=== PATIENT | male | born 1960 | race Caucasian/White ===

== ENCOUNTER 2016-07-07 22:29 | Emergency (ER) | payer BC, OTHER ==
[~2016-07-07] VITALS: Ht 172.7 cm; Wt 108.9 kg
[~2016-07-07 22:29] MED LIST: ASP81TEC PO; BENA20TA72 PO; DILT120T11 PO; HYDR1TAB3 PO; NAPR-243 PO; OMEP-10 PO; PRAV40TA PO; TRM50T PO; diltiazem; tricor
[2016-07-07] MEDS ORDERED: QUIN40TA25 (22:50)
[2016-07-07] MEDS ORDERED: ATOR40TA70 (22:50)
[2016-07-07] MEDS ORDERED: METF1000 (22:50)
[2016-07-07] MEDS ORDERED: RX-NAPROXEN (NAPROSYN) 250 MG TAB PPK#4 PO STA (23:45)
[2016-07-07] MEDS ORDERED: NAPR500T3 PO (23:49)
--- NOTE | 2016-07-07 23:49 | ED Lower Extremity ---
General Chief Complaint: Lower Extremity Stated Complaint: R ANKLE KNEE INJ Nursing Triage Note: PT TO ED 8 PER W/C W/ FAMILY FOR C/O FALL WHILE "MESSING AROUND" W/ HIS SONS. STATES HE STEPPED IN A HOLE. C/O RT KNEE ET ANKLE PAIN AT THIS TIME. Nursing Sepsis Screen: No Definite Risk Source: patient History of Present Illness Time seen by provider: 23:00 Initial Comments PT ARRIVES VIA POV FROM HOME STATES EARLIER THIS EVENING HE WAS "MESSING AROUND" WITH ONE OF HIS SONS AND SOMEHOW INJURED HIS RIGHT KNEE, FOOT AND ANKLE STATES HE DOES NOT KNOW EXACTLY HOW HE INJURED IT --STATES "MUST HAVE STEPPED IN A HOLE OR SOMETHING" NO OTHER INJURIES OR AREAS OF PAIN NO PARESTHESIAS OR MOTOR DEFICITS HAS HAD PRIOR RIGHT KNEE SURGERY PCP: SHAISTA MUKHERJEE Allergies and Home Medications Allergies Coded Allergies: No Known Drug Allergies (Unverified , 09/17/10) Home Medications Aspirin 81 Mg Tabec, 81 MG PO DAILY, (Reported) Atorvastatin Calcium 40 Mg Tablet, #90 (Reported) Diltiazem Hcl 120 Mg Tablet, 120 MG PO DAILY, (Reported) Hydrocodone Bit/Acetaminophen 1 Each Tablet, 1 EACH PO Q6H, (Reported) Metformin HCl 1,000 Mg Tablet, #360 (Reported) Naproxen 500 Mg Tablet, 500 MG PO BID, #20 Prescribed by: OTIS VENTURA on 07/07/16 9153 Quinapril HCl 40 Mg Tablet, #90 (Reported) Constitutional: no symptoms reported Musculoskeletal: see HPI Skin: no symptoms reported Psychiatric/Neurological: No Symptoms Reported Past Bisozvm-Gracqm-Dhlnhj Hx Patient Social History Alcohol Use: Regular Use Recreational Drug Use: No Smoking Status: Current Everyday Smoker (1 PPD) Type Used: Cigarettes Recent Foreign Travel: No Contact w/Someone Who Travel: No Recent Infectious Disease Expo: No Recent Hopitalizations: No Surgeries HX Surgeries: Yes (RIGHT KNEE; RIGHT SHOULDER ROTATOR CUFF REPAIR) Surgeries: Orthopedic Respiratory Hx Respiratory Disorders: Yes Respiratory Disorders: COPD Cardiovascular Hx Cardiac Disorders: Yes Cardiac Disorders: Coronary Artery Disease, Heart Attack, High Cholesterol, Irregular Heartbeat Neurological Hx Neurological Disorders: No Reproductive System Hx Reproductive Disorders: No Genitourinary Hx Genitourinary Disorders: No Gastrointestinal Hx Gastrointestinal Disorders: No Musculoskeletal Hx Musculoskeletal Disorders: Yes (KNEE, SHOULDER SURGERIES; CHRONIC GENERALIZED PAIN) Endocrine Hx Endocrine Disorders: Yes Endocrine Disorders: Diabetes, Non-Insulin dep HEENT HX ENT Disorders: No Cancer Hx Cancer: No Psychosocial Hx Psychiatric Problems: No Integumentary HX Skin/Integumentary Disorder: No Blood Transfusions Hx Blood Disorders: No Physical Exam Vital Signs Vital Sign - Last 12Hours 07/07/16 22:35 Temp 98.6 Pulse 91 Resp 20 B/P (MAP) 135/97 Pulse Ox 98 O2 Delivery Room Air Capillary Refill : Less Than 3 Seconds General Appearance: WD/WN, no apparent distress, other (DIRTY, VERY MALODOROUS , REEKS OF CIGARETTES AND ODOR OF ETOH ) HEENT: PERRL/EOMI Back: no CVA tenderness, no vertebral tenderness Hips: bilateral hip non-tender, bilateral hip normal inspection, bilateral hip normal range of motion, bilateral hip no evidence of injury Legs: bilateral leg non-tender, bilateral leg normal inspection, bilateral leg normal range of motion, bilateral leg no evidence of injury Knees: left knee normal inspection, right knee bone tenderness, right knee pain , right knee soft tissue tenderness, right knee other (NO EXTERNAL EVIDENCE OF TRAUMA, NO SWELLING --UNABLE TO DETERMINE LIGAMENT LAXITY DUE TO PT DISCOMFORT) Ankles: left ankle normal inspection, right ankle bone tenderness, right ankle limited range of motion, right ankle pain, right ankle soft tissue tenderness, right ankle other (NO EXTERNAL EVIDENCE OF TRAUMA, NO SWELLING. ) Feet: right foot bone tenderness, right foot limited range of motion, right foot pain, right foot soft tissue tenderness, right foot other (NO EXTERNAL EVIDENCE OF TRAUMA, NO SWELLING. DISTAL MOTOR/SENSORY /VASCULAR INTACT) Neurologic/Tendon: normal sensation, normal motor functions, normal tendon functions Neurologic/Psychiatric: mobile security specialist II-XII nml as tested, no motor/sensory deficits, alert, normal mood/affect, oriented x 3 Skin: normal color, warm/dry Splinting and Joint Reduction : Bienvenido wrap: Yes Splints: Air Stirrup Girdwood Progress/Results/Core Measures Results/Orders My Orders Orders - OTIS VENTURA DO Knee, Right, 3 Views (07/07/16 22:58) Ankle, Right, 3 Views (07/07/16 22:58) Foot, Right, 3 View (07/07/16 23:29) Bienvenido Bandage (07/07/16 23:45) Gel Ankle Brace (07/07/16 23:45) Rx-Naproxen (Rx-Naprosyn) (07/07/16 23:45) Rx-Ibuprofen (Rx-Motrin) (07/07/16 23:56) Rx-Ibuprofen (Rx-Motrin) (07/07/16 23:54) Vital Signs/I&O Vital Sign - Last 12Hours 07/07/16 07/08/16 22:35 00:00 Temp 98.6 98.6 Pulse 91 91 Resp 20 20 B/P (MAP) 135/97 Pulse Ox 98 98 O2 Delivery Room Air Blood Pressure Mean: 110 Diagnostic Imaging Comments XRAYS RIGHT KNEE--NO ACUTE PROCESS XRAYS RIGHT ANKLE--NO ACUTE PROCESS XRAYS RIGHT FOOT--NO ACUTE PROCESS ALL PENDING RADIOLOGIST REVIEW Reviewed: Reviewed by Me Departure Impression Impression: Primary Impression: Right knee sprain Additional Impressions: Right foot sprain Right ankle sprain Disposition: HOME, SELF-CARE Condition: Stable Departure-Patient Inst. Referrals: CHARAN PASCUAL (PCP/Family) Primary Care Physician Patient Instructions: AIRCAST, Ankle Sprain (DC), Knee Sprain (DC), Sprain (DC) Add. Discharge Instructions: BIENVENIDO WRAP AND SPLIT NEEDED FOR COMFORT ICE TO AREA AT 20 MINUTE INTERVALS ELEVATE FOOT MUCH POSSIBLE TYLENOL NEEDED FOR PAIN FOLLOW UP WITH [facility] IN 1 WEEK IF NO BETTER All discharge instructions reviewed with patient and/or family. Voiced understanding. Scripts Naproxen (Naproxen) 500 Mg Tablet 500 MG PO BID, #20 TAB Prov: OTIS VENTURA DO 07/07/16 OTIS VENTURA DO Jul 07, 2016 23:49
[2016-07-07] MEDS: RX-IBUPROFEN 600 MG (MOTRIN) TAB PPK#4 PO ONE (23:55)
[2016-07-07] MEDS ORDERED: RX-IBUPROFEN 600 MG (MOTRIN) TAB PPK#4 PO STA (23:56)
[2016-07-08] VITALS: BP 135/97
[2016-07-08] MEDS: RX-IBUPROFEN 600 MG (MOTRIN) TAB PPK#4 PO ONE (03:26)
--- NOTE | 2016-07-08 07:45 | Diagnostic Imaging Report ---
INDICATION: Injury. Pain. COMPARISON: None FINDINGS: 3 views of the right knee are obtained. No acute fracture, malalignment or osseous destructive process is seen. Joint spaces appear preserved. Articular margins appear smooth. Soft tissues appear unremarkable. IMPRESSION: Negative right knee Dictated by: Dictated on workstation # [id number]
--- NOTE | 2016-07-08 07:45 | Diagnostic Imaging Report ---
Indication: Injury. Pain. Comparison: None Findings: 3 views of the right foot are obtained. No acute fracture, malalignment or osseous destructive process is seen. There is spurring of the os calcis. Impression: No acute abnormalities demonstrated. Dictated by: Dictated on workstation # [id number]
--- NOTE | 2016-07-08 07:46 | Diagnostic Imaging Report ---
INDICATION: Injury. Pain. COMPARISON: None FINDINGS: 3 views of the right ankle are obtained. No acute fracture, malalignment or osseous destructive process is seen. The ankle joint spaces are preserved. IMPRESSION: Negative right ankle Dictated by: Dictated on workstation # [id number]
== END 2016-07-08 | disposition home or self-care (01) ==
LOC: EDUNIT# 22:29 → ER 22:34
DX: S83.91XA Sprain of unspecified site of right knee, initial encounter (principal); S93.401A Sprain of unspecified ligament of right ankle, initial encounter; S93.601A Unspecified sprain of right foot, initial encounter; E11.9 Type 2 diabetes mellitus without complications; F17.210 Nicotine dependence, cigarettes, uncomplicated; Z79.82 Long term (current) use of aspirin; Z79.899 Other long term (current) drug therapy; Z79.84 Long term (current) use of oral hypoglycemic drugs; W18.42XA Slipping, tripping and stumbling without falling due to stepping into hole or opening, initial encounter; Y99.8 Other external cause status
CPT/HCPCS: 73562; 73610; 73630; 99283

== ENCOUNTER 2016-12-04 14:33 | Outpatient (CLI) | payer BC ==
[~2016-12-04] VITALS: Ht 172.7 cm; Wt 108.9 kg
[~2016-12-04 14:33] MED LIST changes: +ATOR40TA70 PO; +METF1000 PO; +NAPR500T3 PO; +QUIN40TA25 PO
[2016-12-04] MEDS ORDERED: DILT180T9 PO (14:45)
[2016-12-04] MEDS ORDERED: HYDR-3820 PO (14:45)
[2016-12-04] MEDS ORDERED: VARE1TAB22 PO (14:45)
[2016-12-04] MEDS ORDERED: DULA0.75 SQ (14:45)
[2016-12-05] MEDS ORDERED: OXYC-197 PO (13:16)
== END 2016-12-04 14:49 ==
LOC: PREOP 14:33
PROVIDERS: ATTEND Orthopaedic Surgery
DX: Z01.818 Encounter for other preprocedural examination (principal); S83.282A Other tear of lateral meniscus, current injury, left knee, initial encounter; X58.XXXA Exposure to other specified factors, initial encounter; Y99.8 Other external cause status

== ENCOUNTER 2016-12-05 09:43 | Day surgery (SDC) | payer BC ==
[~2016-12-05] VITALS: Ht 172.7 cm; Wt 108.9 kg
--- NOTE | 2016-12-05 08:16 | HISTORY AND PHYSICAL ---
DATE OF SERVICE: DATE OF ADMISSION: 12/05/2016 for left knee arthroscopy. HISTORY: The patient is a 55-year-old gentleman who previously underwent left knee arthroscopy and has had continued lateral knee pain, swelling and catching. He reports popping. He reports activity limitations because of the knee. He has tried bracing, anti-inflammatories and rest without relief and due to functional impairment, the patient has elected to proceed with surgical intervention. REVIEW OF SYSTEMS: No chest pain, no shortness of breath, no dysuria. PAST MEDICAL HISTORY: 1. Diabetes. 2. Hyperlipidemia. 3. Hypertension. 4. Tobacco use. 5. Asthma. PAST SURGICAL HISTORY: Right knee, left knee, shoulder arthroscopy, and vasectomy. FAMILY HISTORY: Significant for hypertension, diabetes. PRIMARY CARE: [facility]. MEDICATIONS: 1. Aspirin. 2. ProAir. 3. Metformin. 4. Accupril. 5. Hydrocodone. 6. Trulicity. 7. Cardizem. 8. Lipitor. No known drug allergies. SOCIAL HISTORY: The patient smokes 1 pack per day. PHYSICAL EXAMINATION: The patient is well-developed, well-nourished in no acute distress. HEENT: Normocephalic, atraumatic. Pupils are equal, round and reactive to light. Oropharynx is clear. NECK: Supple, no lymphadenopathy. LUNGS: Clear to auscultation bilaterally. HEART: Regular rate and rhythm. ABDOMEN: Soft, nontender, nondistended. EXTREMITIES: The left knee demonstrates a 1+ Edilberto, 1+ anterior drawer, negative pivot shift. He is markedly tender along his lateral joint line and has pain laterally with Evert's which reproduces his symptoms. He has a large effusion. He ambulates with an antalgic gait. IMPRESSION: Recurrent lateral meniscal tear. PLAN: Left knee arthroscopy with partial lateral meniscectomy, possible chondroplasty. The risks, benefits, options, ramifications and recovery were discussed at length with the patient and he understands and wishes to proceed. Job ID: [id number] DocumentID: [id number] Dictated Date: 12/01/2016 10:23:37 Stamp Presser Date: 12/02/2016 10:47:01 Dictated By: REMA KWOK MD
[~2016-12-05 09:43] MED LIST changes: +DILT180T9 PO; +DULA0.75 SQ; +HYDR-3820 PO; -NAPR500T3 PO; +NAPR500T4 PO; +QUIN40TA14 PO; -QUIN40TA25 PO; +VARE1TAB22 PO
[2016-12-05] MEDS ORDERED: ceFAZolin 1 GM/NS 50 ML IVPB IV ONE ×2 (10:00)
[2016-12-05] MEDS ORDERED: CATHETER FLUSH 10 ML SYR IV PRN (10:00)
[2016-12-05] MEDS ORDERED: LACTATED RINGERS 1,000 ML IV PRN (10:36)
--- NOTE | 2016-12-05 10:36 | Progress Note-Pre Operative ---
Pre-Operative Progress Note H&P Reviewed The H&P was reviewed, patient examined and no changes noted. 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
--- NOTE | 2016-12-05 10:38 | Progress Note-Post Operative ---
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
[2016-12-05 10:48] VITALS: BP 190/92
[2016-12-05] MEDS ORDERED: LACTATED RINGERS 1,000 ML IV ONE (10:50)
[2016-12-05] MEDS ORDERED: LIDOCAINE PF 2% 5 ML (XYLOCAINE) VIAL ONE (10:50)
[2016-12-05] MEDS ORDERED: ONDANSETRON 4 MG/2 ML (SDV) Z0FRAN ONE (10:50)
[2016-12-05] MEDS ORDERED: proPOfol 200 MG/20 ML (DIPRIVAN) VIAL IV ONE (10:50)
[2016-12-05] MEDS ORDERED: SEVOFLURANE (ULTANE) 15 ML INHAL SOLN ONE (10:50)
[2016-12-05] MEDS ORDERED: fentaNYL INJECTION 100 MCG/2 ML AMP ONE (10:51)
[2016-12-05] MEDS ORDERED: MIDAZOLAM 2 MG/2 ML (VERSED) VIAL ONE (10:51)
[2016-12-05] MEDS ORDERED: BUPIVACAINE 0.25% 30 ML (SENSORCAINE) VIAL ONE (11:01)
[2016-12-05] MEDS ORDERED: morphine PF (DURAMORPH) 10 MG/10 ML AMP ONE (11:01)
[2016-12-05] MEDS ORDERED: oxyCODONE/APAP 5/325MG (PERCOCET 5) TABLET PO PRN (11:15)
[2016-12-05] MEDS ORDERED: morphine INJ 10 MG/ML 1ML (SYR OR VIAL) IVP PRN (12:00)
[2016-12-05] MEDS ORDERED: ONDANSETRON 4 MG/2 ML (SDV) Z0FRAN IVP PRN (12:00)
[2016-12-05] MEDS ORDERED: fentaNYL INJECTION 100 MCG/2 ML AMP IVP PRN (12:00)
[2016-12-05 12:40] VITALS: BP 146/107
[2016-12-05 13:10] VITALS: BP 163/109
--- NOTE | 2016-12-05 13:13 | OPERATIVE REPORT ---
DATE OF SERVICE: 12/05/2016 PREOPERATIVE DIAGNOSIS: Left knee lateral meniscal tear. POSTOPERATIVE DIAGNOSES: 1. Left knee lateral meniscal tear. 2. Left knee medial meniscal tear. 3. Left knee chondromalacia of the medial femoral condyle. PROCEDURES: 1. Left knee arthroscopic partial lateral meniscectomy. 2. Left knee arthroscopic partial medial meniscectomy. 3. Left knee arthroscopic chondroplasty of the medial femoral condyle. SURGEON: Marco Kwok M.D. SHOE CLERK: SADIE Mcghee who assisted throughout the procedure and closed the anesthesia. ANESTHESIA: General endotracheal by Karlee Amaral CRNA. TOURNIQUET TIME: Not applicable. ESTIMATED BLOOD LOSS: Minimal. DRAINS: None. COMPLICATIONS: None. POSTOPERATIVE PLAN: Routine arthroscopy protocol. The patient is transferred to the recovery room awake and in stable condition. STATEMENT OF MEDICAL NECESSITY: The patient is a 55-year-old gentleman with previous on left knee arthroscopy, reported continued lateral knee pain, catching and locking and swelling. He was tender along his lateral joint line and pain had laterally with Evert's. It was felt that he likely had a lateral meniscal tear and due to functional impairment and failure to improve with conservative measures, the patient elected to proceed with surgical intervention. Examination under anesthesia revealed range of motion 0/0/140, trace Edilberto, trace anterior drawer, negative pivot shift, no varus and valgus laxity, negative posterior drawer. Arthroscopic findings of the patella and trochlea demonstrated no gross chondral abnormalities. The medial and lateral gutters were clear. The medial compartment showed grade 2 chondral flaps in the weightbearing portion of the medial femoral condyle and a 15 x 15 area. Posterior horn of the medial meniscus demonstrated a horizontal cleavage involving approximately 20% posterior horn. The ACL was 30% disrupted in its anterior fibers. The PCL was intact. The lateral compartment demonstrated an under surface tear of the body and the anterior horn of the meniscus involving approximately one-third of the body extending in to the anterior horn. PROCEDURE: After risks and benefits of the procedure were discussed and questions were answered and informed was signed and placed in the chart, the operative site was confirmed in the preop holding area and initiated by the surgeon and the patient was then transported to the operating room. After adequate levels of general endotracheal anesthetic were obtained, a time-out was called confirming the operative site. An [id number] under anesthesia was performed with the above findings noted. The left lower extremity was prepped and draped in the usual sterile fashion. The knee joint was injected with 60 mL of fluid and standard inferior lateral portal was placed. Under direct visualization, inferior medial portal was created. The menisci and cruciates were carefully probed with the above findings noted. The unstable chondral flaps in the medial femoral condyle were debrided with the shaver back to a stable edge. The posterior horn of the medial meniscus was then debrided with a biter and a shaver removing approximately 20% of the posterior horn and this was carefully probed. No further tear or instability noted. The scope was removed directly from the lateral compartment where the unstable lateral meniscus tear was debrided with a biter and a shaver removing approximately one third of the body and the anterior horn. This was carefully probed with no further tear or instability noted. The scope was then redirected to the inferior medial portal to inspect the undersurface of the meniscus. No pathology was noted. The knee joint was copiously irrigated and the portal sites were closed with 4-0 nylon in simple interrupted fashion. Knee was injected with Duramorph. The portal sites were infiltrated with plain Marcaine and a soft dressing was applied and the patient was transported to the recovery room, awake and in stable condition. Job ID: [id number] DocumentID: [id number] Dictated Date: 12/05/2016 12:00:34 Land Surveyor Date: 12/05/2016 13:13:09 Dictated By: MARCO KWOK MD
[2016-12-05] MEDS ORDERED: OXYC-197 PO (13:16)
[2016-12-05 13:40] VITALS: BP 178/110
--- NOTE | 2016-12-05 14:19 | Physical Therapy Ortho Eval ---
PT Orthopedic Evaluation Type of Surgery Knee Scope Pt underwent elective (L) knee scope 12/05/16 for chondroplasty and arthroscopic repair of the medial meniscus. Prior Level of Function Current Living Status: Spouse Locomotion (Upon Admit): Independent Established Durable Medical Eq: Crutches Subjective Subjective Pt reports he recently had a scope on this same knee, but the symptoms returned. Steps Accessories: Ramped Entrance Motor Control Motor Control: Motor Control WNL ROM ROM: WFL, except focal deficit left knee flexion 100 degrees, lacks 5 degrees of full extension on the left Strength Strength: Gen Weak,No Focal Deficit quads and hip flexors 4/5 Transfer Transfers (B, C, W/C) (FIM): 6 Gait Gait Assistive Device: FWW steady gait including turns and steps; used FWW to allow for PWB on the affected limb Weight Bearing Restriction: Partial Weight Bearing Location Restriction: LT FOOT Gait (FIM): 6 Distance (FIM): 3=150 ft Distance: 150 Gait Level of Assist: 6 Treatment Rendered Treatment: Therapeutic Exercises, Gait Train, Step Train, Issued Written HEP, Caregiver Instruction Exercise Instruction: Quad Sets, Straight Leg Raise, Heel Slides Assessment/Goals Goal Time Frame: 1 Visit Understands HEP: Yes Safe Ambulation: Yes Plan Treatment Plan: Discharge Treatment Duration: 1 visit Visits Per Week: 1 PT/Family Agrees to Plan: Yes Time Time In: 1330 Time Out: 1350 Total Billed Treatment Time: 20 Billed Treatment Time visit, francis low complexity No ROQUE JIM PT Dec 05, 2016 14:19
== END 2016-12-05 13:45 | disposition home or self-care (01) ==
LOC: SDC 09:43
PROVIDERS: ATTEND Orthopaedic Surgery
DX: M23.8X2 Other internal derangements of left knee (principal); M94.262 Chondromalacia, left knee; Z11.2 Encounter for screening for other bacterial diseases; E11.9 Type 2 diabetes mellitus without complications; E78.5 Hyperlipidemia, unspecified; I10 Essential (primary) hypertension; J45.909 Unspecified asthma, uncomplicated; F17.210 Nicotine dependence, cigarettes, uncomplicated; Z79.82 Long term (current) use of aspirin; Z79.899 Other long term (current) drug therapy
CPT/HCPCS: 82962; 87081

== ENCOUNTER 2017-07-13 21:47 | Emergency (ER) | payer SELFPAY ==
[~2017-07-13] VITALS: Ht 167.6 cm; Wt 113.4 kg
[~2017-07-13 21:47] MED LIST changes: -METF1000 PO; +METF10002 PO; +NAPR-915 PO; -NAPR500T4 PO; +OXYC-197 PO
[2017-07-13] MEDS ORDERED: HYDR-3820 (21:59)
[2017-07-13] MEDS ORDERED: RT-ALBUTEROL/IPRATROPIUM 3 ML (DUONEB) VIAL INH ONE (22:15)
--- NOTE | 2017-07-13 22:17 | ED Respiratory ---
General Chief Complaint: Respiratory Problems Stated Complaint: SOB Nursing Triage Note: patient reports SOA Source: patient, family Exam Limitations: no limitations History of Present Illness Date Seen by Provider: Jul 13, 2017 Time Seen by Provider: 22:00 Initial Comments Patient reports to the ER by private conveyance with his 2 sons and a chief complaint that today he's having progressively worsening shortness of breath. He is not really having much cough. His shoulders were aching a little bit. He does not have a known history of coronary artery disease however he did have a stress test once and was told to follow with a licensed mental health counselor because he didn't have money he was lost to follow-up. He has a history of COPD but does not use albuterol anymore. He follows at [facility]. He smokes cigarettes occasionally. No marijuana or other tobacco products. He denies any fevers, nausea, chest pain, abdominal pain, sweats, chills. He does have a history of diabetes for which she is on weekly injections and metformin. He has no thyroid problems but he has high blood pressure and high cholesterol. He is not on blood thinners and does not have a history of stents. Allergies and Home Medications Allergies Coded Allergies: No Known Drug Allergies (Unverified , 09/17/10) Home Medications Aspirin 81 Mg Tabec, 81 MG PO DAILY, (Reported) Atorvastatin Calcium 40 Mg Tablet, 40 MG PO every other day, (Reported) Diltiazem HCl 180 Mg Tab.er.24h, 180 MG PO DAILY, (Reported) Dulaglutide 0.75 Mg/0.5 Ml Pen.injctr, 0.75 MG SQ WEEK, (Reported) Metformin HCl 1,000 Mg Tablet, 2,000 MG PO BID, (Reported) take 2 (1,000mg) tabs Oxycodone HCl/Acetaminophen 1 Each Tablet, 1 TAB PO Q4H PRN for PAIN Prescribed by: JOHANA BUSTAMANTE on 12/05/16 1316 Quinapril HCl 40 Mg Tablet, 40 MG PO DAILY, (Reported) Varenicline Tartrate 1 Mg Tablet, 0.5 MG PO BID, (Reported) take 1/2 of 1mg tab Patient Home Medication List Home Medication List Reviewed: Yes Review of Systems Constitutional: No chills, No diaphoresis, No fever, No malaise EENTM: No ear pain, No eye pain Respiratory: cough (rare); No phlegm; short of breath; No stridor; wheezing Cardiovascular: No chest pain, No palpitations, No vascular heart diseas Gastrointestinal: No abdominal pain, No constipation, No diarrhea, No nausea, No vomiting Musculoskeletal: No back pain, No joint pain Past Tirlfiw-Zsgniy-Oidsvy Hx Patient Social History Alcohol Use: Denies Use Number of Drinks Today: AA Alcohol Beverage of Choice: Beer Recreational Drug Use: Yes Type Used: Cigarettes Former Smoker, Quit: Nov 20, 2016 Recent Foreign Travel: No Contact w/Someone Who Travel: No Recent Infectious Disease Expo: No Recent Hopitalizations: No Physical Abuse: No Sexual Abuse: No Immunizations Up To Date Tetanus Booster (TDap): Unknown Seasonal Allergies Seasonal Allergies: Yes Past Medical History Surgeries: Yes (BILAT KNEE; RIGHT SHOULDER ROTATOR CUFF REPAIR) Orthopedic Respiratory: Yes Asthma, COPD Cardiac: Yes Coronary Artery Disease, High Cholesterol, Hypertension Neurological: No Reproductive Disorders: No Gastrointestinal: No Musculoskeletal: Yes (KNEE, SHOULDER SURGERIES; CHRONIC GENERALIZED PAIN) Endocrine: Yes Diabetes, Non-Insulin dep Loss of Vision: Denies Hearing Impairment: Denies Cancer: No Psychosocial: No Nursing Suicide Risk Score: 0 Integumentary: No Blood Disorders: No Physical Exam Vital Signs Vital Signs - First Documented 07/13/17 07/13/17 21:55 22:28 Temp 98.4 Pulse 81 Resp 21 B/P (MAP) 185/81 (115) Pulse Ox 94 O2 Delivery Room Air Capillary Refill : Less Than 3 Seconds General Appearance: WD/WN, no apparent distress Eyes: Bilateral Eye Normal Inspection, Bilateral Eye PERRL, Bilateral Eye EOMI HEENT: PERRL/EOMI, normal ENT inspection, pharynx normal Neck: non-tender, supple, normal inspection Respiratory: chest non-tender, no respiratory distress, no accessory muscle use , decreased breath sounds (tight air sounds); No crackles, No rhonchi, No stridor; wheezing (scant basilar) Cardiovascular: normal peripheral pulses, regular rate, rhythm, no edema Gastrointestinal: normal bowel sounds, non tender, soft Neurologic/Psychiatric: alert, normal mood/affect, oriented x 3 Skin: normal color, warm/dry Progress/Results/Core Measures Suspected Sepsis Recent Fever Within 48 Hours: No Infection Criteria Present: None New/Unexplained Altered Menta: No Sepsis Screen: No Definite Risk SIRS Temperature:98.4 Pulse: 81 Respiratory Rate: 21 Laboratory Tests 07/13/17 22:18: White Blood Count 5.0 Blood Pressure 185 /81 Mean: 115 Laboratory Tests 07/13/17 22:18: Creatinine 1.15, Platelet Count 249, Total Bilirubin 0.4 Results/Orders Lab Results Laboratory Tests Test 07/13/17 22:18 Range/Units White Blood Count 5.0 4.3-11.0 10^3/uL Red Blood Count 4.38 4.35-5.85 10^6/uL Hemoglobin 14.5 13.3-17.7 G/DL Hematocrit 42 40-54 % Mean Corpuscular Volume 95 80-99 FL Mean Corpuscular Hemoglobin 33 25-34 PG Mean Corpuscular Hemoglobin Concent 35 32-36 G/DL Red Cell Distribution Width 14.2 10.0-14.5 % Platelet Count 249 130-400 10^3/uL Mean Platelet Volume 9.7 7.4-10.4 FL Neutrophils (%) (Auto) 50 42-75 % Lymphocytes (%) (Auto) 36 12-44 % Monocytes (%) (Auto) 9 0-12 % Eosinophils (%) (Auto) 4 0-10 % Basophils (%) (Auto) 1 0-10 % Neutrophils # (Auto) 2.5 1.8-7.8 X 10^3 Lymphocytes # (Auto) 1.8 1.0-4.0 X 10^3 Monocytes # (Auto) 0.5 0.0-1.0 X 10^3 Eosinophils # (Auto) 0.2 0.0-0.3 10^3/uL Basophils # (Auto) 0.0 0.0-0.1 10^3/uL Sodium Level 140 135-145 MMOL/L Potassium Level 3.6 3.6-5.0 MMOL/L Chloride Level 102 98-107 MMOL/L Carbon Dioxide Level 22 21-32 MMOL/L Anion Gap 16 H 5-14 MMOL/L Blood Urea Nitrogen 13 7-18 MG/DL Creatinine 1.15 0.60-1.30 MG/DL Estimat Glomerular Filtration Rate > 60 BUN/Creatinine Ratio 11 Glucose Level 159 H 70-105 MG/DL Calcium Level 9.1 8.5-10.1 MG/DL Total Bilirubin 0.4 0.1-1.0 MG/DL Aspartate Amino Transf (AST/SGOT) 23 5-34 U/L Alanine Aminotransferase (ALT/SGPT) 48 0-55 U/L Alkaline Phosphatase 74 40-136 U/L Troponin I < 0.30 <0.30 NG/ML C-Reactive Protein High Sensitivity 0.09 0.00-0.50 MG/DL Total Protein 7.7 6.4-8.2 GM/DL Albumin 4.4 3.2-4.5 GM/DL My Orders Orders - LUKAS JONES Albuterol/Ipra Inhalation Soln (Duoneb I (07/13/17 22:15) Chest Pa/Lat (2 View) (07/13/17 22:10) Cbc With Automated Diff (07/13/17 22:10) Comprehensive Metabolic Panel (07/13/17 22:10) Hs C Reactive Protein (07/13/17 22:10) Troponin I (07/13/17 22:10) Svn Sm Volume Nebulizer Rt-Rfs (07/13/17 22:10) Prednisone Tablet (Deltasone Tablet) (07/13/17 23:30) Rx-Albuterol Inhaler (Rx-Proair) (07/13/17 23:22) Medications Given in ED Current Medications Medications Dose Ordered Sig/Andreia Route Start Time Stop Time Status Last Admin Dose Admin Albuterol/ Ipratropium 3 ml ONCE ONCE INH 07/13/17 22:15 07/13/17 22:16 DC 07/13/17 22:27 3 ML Vital Signs/I&O 07/13/17 07/13/17 21:55 22:28 Temp 98.4 Pulse 81 Resp 21 B/P (MAP) 185/81 (115) Pulse Ox 94 95 O2 Delivery Room Air Capillary Refill : Less Than 3 Seconds Blood Pressure Mean: 115 Progress Note #1: Time: 22:15 Progress Note Concern for COPD exacerbation. Possibility of a pneumonia/bronchitis etc. We'll get a basic lab draw was CRP as well as a 2 view chest x-ray and give him a DuoNeb was reevaluate his breath sounds. His oxygen sats are in the mid 90s on room air and he has no sensory muscle use or other evidence of respiratory distress. Echocardiogram [address] De La Cruz: Moderate left ventricular hypertrophy with normal systolic function and EF of 60 %. Diastolic dysfunction is suggested by Doppler. Mild mitral and tricuspid regurgitation. Pulmonary hypertension with an estimated pulmonary artery pressure of 45 mmHg. Stress test from 2012 demonstrated no ischemic or infarction on perfusion imaging. Progress Note #2: Time: 23:24 Progress Note Respirations are still relaxants vitals are aseptic but his breathing has improved. He is moving more air. No wheezes heard. We'll set him up some prednisone and an albuterol inhaler and spacer. ECG Initial ECG Impression Date: Jul 13, 2017 Initial ECG Impression Time: 21:49 Initial ECG Rate: 82 Initial ECG Rhythm: Normal Sinus Initial ECG Intervals: Normal Initial ECG Impression: Normal, Nonspecific Changes Diagnostic Imaging Diagonstic Imaging: Xray Plain Films/CT/US/NM/MRI: chest (2v) Comments No acute cardiopulmonary processes noted. Reviewed: Reviewed by Me Departure Impression Primary Impression: COPD with exacerbation Disposition: 01 HOME, SELF-CARE Condition: Improved Departure-Patient Inst. Decision time for Depature: 23:25 Referrals: [facility] (PCP) Primary Care Physician CHARAN PASCUAL (Family) Primary Care Physician Patient Instructions: Exacerbation of COPD (DC) Add. Discharge Instructions: For the next few days you can use the albuterol 2 puffs every 6 hours and every 4 hours you can use it 2 puffs if needed for shortness of breath, wheezing, coughing or other concerns between treatments. supervisor cutting department the prednisone from the pharmacy and take 2 tablets daily for the next 5 days. Prior to any strenuous exercise in the cold or [place] environment you may take 2 puffs just to premedicate and prevent worsening of your breathing. Plan to follow up with your primary care physician the next 1-2 weeks. All discharge instructions reviewed with patient and/or family. Voiced understanding. Scripts Prednisone (Prednisone) 20 Mg Tab 40 MG PO DAILY for 5 Days, #10 TAB 0 Refills Prov: LUKAS JONES 07/13/17 Copy Copies To 1: GRANT STRINGER DO LUKAS JONES Jul 13, 2017 22:17
[2017-07-13 22:25] LABS: BASOPHILS % (AUTO) 1 % (0-10); EOSINOPHILS # (AUTO) 0.2 10^3/uL (0.0-0.3); EOSINOPHILS % (AUTO) 4 % (0-10); HEMATOCRIT 42 % (40-54); HEMOGLOBIN 14.5 G/DL (13.3-17.7); LYMPHOCYTES # (AUTO) 1.8 X 10^3 (1.0-4.0); LYMPHOCYTES % (AUTO) 36 % (12-44); MEAN CORPUSCULAR HEMOGLOBIN 33 PG (25-34); MEAN CORPUSCULAR HGB CONC 35 G/DL (32-36); MEAN CORPUSCULAR VOLUME 95 FL (80-99); MEAN PLATELET VOLUME 9.7 FL (7.4-10.4); MONOCYTES # (AUTO) 0.5 X 10^3 (0.0-1.0); MONOCYTES % (AUTO) 9 % (0-12); NEUTROPHILS # (AUTO) 2.5 X 10^3 (1.8-7.8); NEUTROPHILS % (AUTO) 50 % (42-75); PLATELET COUNT 249 10^3/uL (130-400); RED BLOOD COUNT 4.38 10^6/uL (4.35-5.85); RED CELL DISTRIBUTION WIDTH 14.2 % (10.0-14.5)
[2017-07-13 22:42] LABS: ALANINE AMINOTRANSFERASE 48 U/L (0-55); ALBUMIN 4.4 GM/DL (3.2-4.5); ALKALINE PHOSPHATASE 74 U/L (40-136); BILIRUBIN,TOTAL 0.4 MG/DL (0.1-1.0); BUN/CREATININE RATIO 11; CALCIUM 9.1 MG/DL (8.5-10.1); CARBON DIOXIDE 22 MMOL/L (21-32); CHLORIDE 102 MMOL/L (98-107); CREATININE SERUM 1.15 MG/DL (0.60-1.30); GFR ESTIMATED > 60; GLUCOSE 159 MG/DL (70-105); POTASSIUM 3.6 MMOL/L (3.6-5.0); SODIUM 140 MMOL/L (135-145); TOTAL PROTEIN 7.7 GM/DL (6.4-8.2)
[2017-07-13] MEDS ORDERED: RX-ALBUTEROL INHALER (PROAIR) 8 GM IH STA (23:22)
[2017-07-13] MEDS ORDERED: PRD20T PO (23:27)
[2017-07-13] MEDS ORDERED: predniSONE 20 MG TAB PO ONE (23:30)
[2017-07-13 23:39] VITALS: BP 150/80
--- NOTE | 2017-07-14 07:23 | Diagnostic Imaging Report ---
EXAMINATION: CHEST (PA AND LATERAL) CLINICAL INDICATION: 56-year-old male, cough, shortness of breath. COMPARISON: 01/20/2012. FINDINGS: Heart size and mediastinal contours are unremarkable. There is no identified pneumothorax. There is no pleural effusion. There is no identified focal airspace consolidation. IMPRESSION: No identified acute cardiopulmonary abnormality. Dictated by: Dictated on workstation # [id number]
== END 2017-07-13 23:41 | disposition home or self-care (01) ==
LOC: EDUNIT# 21:47 → ER 21:48
DX: J44.1 Chronic obstructive pulmonary disease with (acute) exacerbation (principal); E11.9 Type 2 diabetes mellitus without complications; I25.10 Atherosclerotic heart disease of native coronary artery without angina pectoris; E78.00 Pure hypercholesterolemia, unspecified; I10 Essential (primary) hypertension; F17.210 Nicotine dependence, cigarettes, uncomplicated; Z98.890 Other specified postprocedural states; Z79.82 Long term (current) use of aspirin; Z79.84 Long term (current) use of oral hypoglycemic drugs
CPT/HCPCS: 36415; 71046; 80053; 84484; 85025; 86141; 93005; 94640

== ENCOUNTER 2018-02-15 22:34 | Inpatient (IN) | payer SELFPAY ==
[~2018-02-15] VITALS: Ht 167.6 cm; Wt 108.9 kg
[~2018-02-15 22:34] MED LIST changes: +HYDR-3820; +METF-399 PO; -METF10002 PO; -OXYC-197 PO; +OXYC1TAB87 PO; +PRD20T PO
[2018-02-15 23:33] LABS: BASOPHILS % (AUTO) 0 % (0-10); EOSINOPHILS # (AUTO) 0.1 10^3/uL (0.0-0.3); EOSINOPHILS % (AUTO) 1 % (0-10); HEMATOCRIT 44 % (40-54); HEMOGLOBIN 15.6 G/DL (13.3-17.7); LYMPHOCYTES # (AUTO) 1.6 X 10^3 (1.0-4.0); LYMPHOCYTES % (AUTO) 18 % (12-44); MEAN CORPUSCULAR HEMOGLOBIN 33 PG (25-34); MEAN CORPUSCULAR HGB CONC 36 G/DL (32-36); MEAN CORPUSCULAR VOLUME 93 FL (80-99); MONOCYTES # (AUTO) 1.1 X 10^3 (0.0-1.0); MONOCYTES % (AUTO) 12 % (0-12); NEUTROPHILS # (AUTO) 6.1 X 10^3 (1.8-7.8); NEUTROPHILS % (AUTO) 68 % (42-75); PLATELET COUNT 196 10^3/uL (130-400); RED BLOOD COUNT 4.69 10^6/uL (4.35-5.85); RED CELL DISTRIBUTION WIDTH 12.4 % (10.0-14.5)
[2018-02-15 23:44] LABS: INR 0.8 (0.8-1.4); PROTHROMBIN TIME PATIENT 11.5 SEC (12.2-14.7)
[2018-02-15 23:53] LABS: ALANINE AMINOTRANSFERASE 77 U/L (0-55); ALBUMIN 4.4 GM/DL (3.2-4.5); ALKALINE PHOSPHATASE 97 U/L (40-136); BILIRUBIN,TOTAL 0.9 MG/DL (0.1-1.0); BUN/CREATININE RATIO 15; CALCIUM 10.1 MG/DL (8.5-10.1); CARBON DIOXIDE 20 MMOL/L (21-32); CHLORIDE 96 MMOL/L (98-107); CREATININE SERUM 1.13 MG/DL (0.60-1.30); GFR ESTIMATED > 60; POTASSIUM 4.1 MMOL/L (3.6-5.0); SODIUM 130 MMOL/L (135-145); TOTAL PROTEIN 7.9 GM/DL (6.4-8.2)
[2018-02-16] VITALS (8 sets, daily range): BP systolic 144–169; BP diastolic 74–102
[2018-02-16 00:02] LABS: BILIRUBIN,URINE NEGATIVE (NEGATIVE); CLARITY,URINE CLEAR; COLOR,URINE YELLOW; GLUCOSE, URINE (UA) 4+ (NEGATIVE); KETONES,URINE 4+ (NEGATIVE); LEUKOCYTE ESTERASE ,URINE NEGATIVE (NEGATIVE); NITRITE,URINE NEGATIVE (NEGATIVE); PH,URINE 5 (5-9); PROTEIN,URINE NEGATIVE (NEGATIVE); UROBILINOGEN,URINE NORMAL (NORMAL)
[2018-02-16 00:34] LABS: BACTERIA,URINE NEGATIVE /HPF; SQUAMOUS EPITHELIAL CELL,UR 0-2 /HPF
[2018-02-16 00:34] LABS: GLUCOSE 413 MG/DL (70-105)
[2018-02-16] MEDS ORDERED: NS IV 1000 ML 1,000 ML IV ONE ×2 (00:37→03:45)
[2018-02-16] MEDS ORDERED: IOHEXOL 350 MG/ML 100 ML (OMNIPAQUE 350) VIAL IV ONE (00:45)
[2018-02-16] MEDS ORDERED: VANCOMYCIN INJECTION 1,000 MG in NS (IVPB) 250 ML IV ONE (00:45)
[2018-02-16] MEDS ORDERED: NS 250 ML (IVPB) BAG IV ONE (00:45)
[2018-02-16] MEDS ORDERED: inSUlin (REGULAR) HUMAN 1 UNIT/0.01 ML (CHARGE PER UNIT) IV ONE (00:45)
[2018-02-16] MEDS ORDERED: cefTRIAXone FOR IV USE 2,000 MG in NS (IVPB) 50 ML IV ONE (01:00)
--- NOTE | 2018-02-16 01:05 | ED Integumentary General ---
General Chief Complaint: Skin/Wound Problems Stated Complaint: SORE ON GROIN Nursing Triage Note: Pt ambulated to rm 9 w/o difficulty. Pt c/o abscess in R groin area. Pt reports noting sore area that began on Sat. Symptoms have worsened today. Are reddened and hard with minimal drainage. Source: patient History of Present Illness Date Seen by Provider: Feb 15, 2018 Time Seen by Provider: 22:50 Initial Comments PT ARRIVES VIA POV FROM HOME C/O "BOIL" IN RIGHT GROIN AREA SINCE Saturday02/12/18 STATES AREA HAS GOTTEN MUCH BIGGER AND MORE PAINFUL SINCE THEN AREA STARTED DRAINING TODAY NO KNOWN FEVER NO PROBLEMS URINATING NO PAIN IN RECTUM ITSELF STATES HE "JUST HASN'T FELT GOOD" THE LAST COUPLE OF DAYS, BUT NO SPECIFIC COMPLAINT PT STATES HE HAD A "BOIL" ON HIS BACK IN THE PAST, AND HAD TO HAVE I&D DONE, BUT OTHERWISE HAS NOT HAD OTHER ABSCESSES OR SKIN INFECTIONS PT DENIES HISTORY OF MRSA PT IS DIABETIC STATES HE CHECKS HIS BLOOD SUGARS ON MOST MORNINGS, STATES IT HAS BEEN IN THE 400-500'S FOR THE LAST FEW WEEKS WAS ON TRULICITY, BUT HAS NOT TAKEN IT FOR A COUPLE OF MONTHS DUE TO COST. PCP: [facility] CHARAN PASCUAL Allergies and Home Medications Allergies Coded Allergies: No Known Drug Allergies (Unverified , 09/17/10) Home Medications Aspirin 81 Mg Tabec, 81 MG PO DAILY, (Reported) Atorvastatin Calcium 40 Mg Tablet, 40 MG PO every other day, (Reported) Diltiazem HCl 180 Mg Tab.er.24h, 180 MG PO DAILY, (Reported) Dulaglutide 0.75 Mg/0.5 Ml Pen.injctr, 0.75 MG SQ WEEK, (Reported) Metformin HCl 1,000 Mg Tablet, 2,000 MG PO BID, (Reported) take 2 (1,000mg) tabs Oxycodone HCl/Acetaminophen 1 Each Tablet, 1 TAB PO Q4H PRN for PAIN Prescribed by: JOHANA BUSTAMANTE on 12/05/16 1316 Prednisone 20 Mg Tab, 40 MG PO DAILY Prescribed by: LUKAS JONES on 07/13/17 2327 Quinapril HCl 40 Mg Tablet, 40 MG PO DAILY, (Reported) Varenicline Tartrate 1 Mg Tablet, 0.5 MG PO BID, (Reported) take 1/2 of 1mg tab Patient Home Medication List Home Medication List Reviewed: Yes Review of Systems Review of Systems Constitutional: see HPI; No chills, No diaphoresis, No fever; malaise Respiratory: no symptoms reported; No cough, No short of breath Cardiovascular: no symptoms reported Gastrointestinal: no symptoms reported; No abdominal pain, No nausea, No vomiting Genitourinary: see HPI Musculoskeletal: No no symptoms reported Skin: see HPI Psychiatric/Neurological: No Symptoms Reported; Denies Numbness, Denies Paresthesia, Denies Weakness Endocrine: See HPI Hematologic/Lymphatic: No Symptoms Reported Past [place]-Yxiexn-Kgygdv Hx Patient Social History Alcohol Use: Regular Use (DRINKS BEER + WHISKEY DAILY OR ALMOST DAILY--WILL NOT STATE HOW MUCH HE DRINKS A DAY) Number of Drinks Today: 0 Alcohol Beverage of Choice: Beer, Whiskey Recreational Drug Use: Yes (THC) Drug of Choice: THC Smoking Status: Current Everyday Smoker (1 PPD) Type Used: Cigarettes 2nd Hand Smoke Exposure: Yes Recent Foreign Travel: No Contact w/Someone Who Travel: No Recent Infectious Disease Expo: No Recent Hopitalizations: No Immunizations Up To Date Tetanus Booster (TDap): Unknown Seasonal Allergies Seasonal Allergies: Yes Past Medical History Surgeries: Yes (BILAT KNEE SCOPES--RIGHT X1, LEFT X 2; RIGHT SHOULDER ROTATOR CUFF REPAIR; I&D OF ABSCESS ON BACK) Orthopedic Respiratory: Yes Asthma, COPD Cardiac: Yes Coronary Artery Disease, High Cholesterol, Hypertension Neurological: No Reproductive Disorders: No Genitourinary: No Gastrointestinal: No Musculoskeletal: Yes (KNEE, SHOULDER SURGERIES; CHRONIC GENERALIZED PAIN) Endocrine: Yes Diabetes, Non-Insulin dep HEENT: No Loss of Vision: Denies Hearing Impairment: Denies Cancer: No Psychosocial: No Integumentary: Yes (ABSCESS I&D) Blood Disorders: No Physical Exam Vital Signs Vital Signs - First Documented 02/15/18 23:59 Temp 98.1 Pulse 95 Resp 17 B/P (MAP) 187/109 (135) Pulse Ox 95 Capillary Refill : Less Than 3 Seconds General Appearance: WD/WN, no apparent distress Cardiovascular: regular rate, rhythm, no murmur Respiratory: normal breath sounds Gastrointestinal: non tender, soft Back: no CVA tenderness Extremities: normal range of motion, non-tender, normal inspection, no pedal edema, no calf tenderness, normal capillary refill Neurologic/Psychiatric: medical practice manager II-XII nml as tested, no motor/sensory deficits, alert, normal mood/affect, oriented x 3 Skin: normal color, warm/dry, other (VERY LARGE, FIRM, ERYTHEMATOUS, WARM AREA OF SWELLING AND INDURATION WITH SMALL AMOUNT OF DRAINAGE FROM CENTER--RIGHT LATERAL SCROTUM, PERINEAL AREA AND BUTTOCK AREA. NO DISCRETE AREAS OF FLUCTUANCE --AREA IS VERY FIRM . ) Progress/Results/Core Measures Results/Orders Lab Results Laboratory Tests Test 02/15/18 23:20 02/15/18 23:22 02/15/18 23:50 Range/Units White Blood Count 9.0 4.3-11.0 10^3/uL Red Blood Count 4.69 4.35-5.85 10^6/uL Hemoglobin 15.6 13.3-17.7 G/DL Hematocrit 44 40-54 % Mean Corpuscular Volume 93 80-99 FL Mean Corpuscular Hemoglobin 33 25-34 PG Mean Corpuscular Hemoglobin Concent 36 32-36 G/DL Red Cell Distribution Width 12.4 10.0-14.5 % Platelet Count 196 130-400 10^3/uL Mean Platelet Volume 11.0 H 7.4-10.4 FL Neutrophils (%) (Auto) 68 42-75 % Lymphocytes (%) (Auto) 18 12-44 % Monocytes (%) (Auto) 12 0-12 % Eosinophils (%) (Auto) 1 0-10 % Basophils (%) (Auto) 0 0-10 % Neutrophils # (Auto) 6.1 1.8-7.8 X 10^3 Lymphocytes # (Auto) 1.6 1.0-4.0 X 10^3 Monocytes # (Auto) 1.1 H 0.0-1.0 X 10^3 Eosinophils # (Auto) 0.1 0.0-0.3 10^3/uL Basophils # (Auto) 0.0 0.0-0.1 10^3/uL Prothrombin Time 11.5 L 12.2-14.7 SEC INR Comment 0.8 0.8-1.4 Activated Partial Thromboplast Time 27 24-35 SEC Sodium Level 130 L 135-145 MMOL/L Potassium Level 4.1 3.6-5.0 MMOL/L Chloride Level 96 L 98-107 MMOL/L Carbon Dioxide Level 20 L 21-32 MMOL/L Anion Gap 14 5-14 MMOL/L Blood Urea Nitrogen 17 7-18 MG/DL Creatinine 1.13 0.60-1.30 MG/DL Estimat Glomerular Filtration Rate > 60 BUN/Creatinine Ratio 15 Glucose Level 413 *H 70-105 MG/DL Lactic Acid Level 0.81 0.50-2.00 MMOL/L Calcium Level 10.1 8.5-10.1 MG/DL Corrected Calcium 9.8 8.5-10.1 MG/DL Total Bilirubin 0.9 0.1-1.0 MG/DL Aspartate Amino Transf (AST/SGOT) 23 5-34 U/L Alanine Aminotransferase (ALT/SGPT) 77 H 0-55 U/L Alkaline Phosphatase 97 40-136 U/L Total Protein 7.9 6.4-8.2 GM/DL Albumin 4.4 3.2-4.5 GM/DL Glucometer 379 H 70-110 MG/DL Urine Color YELLOW Urine Clarity CLEAR Urine pH 5 5-9 Urine Specific Benson 1.015 L 1.016-1.022 Urine Protein NEGATIVE NEGATIVE Urine Glucose (UA) 4+ H NEGATIVE Urine Ketones 4+ H NEGATIVE Urine Nitrite NEGATIVE NEGATIVE Urine Bilirubin NEGATIVE NEGATIVE Urine Urobilinogen NORMAL NORMAL MG/DL Urine Leukocyte Esterase NEGATIVE NEGATIVE Urine RBC (Auto) NEGATIVE NEGATIVE Urine RBC NONE /HPF Urine WBC NONE /HPF Urine Squamous Epithelial Cells 0-2 /HPF Urine Crystals NONE /LPF Urine Bacteria NEGATIVE /HPF Urine Casts NONE /LPF Urine Mucus NEGATIVE /LPF Urine Culture Indicated NO My Orders Orders - OTIS VENTURA DO Accucheck Stat ONCE (02/15/18 23:04) Saline Lock/Iv-Start (02/15/18 23:04) Cbc With Automated Diff (02/15/18 23:04) Comprehensive Metabolic Panel (02/15/18 23:04) Lactic Acid Analyzer (02/15/18 23:04) Protime With Inr (02/15/18 23:) Partial Thromboplastin Time (02/15/18 23:04) Ua Culture If Indicated (02/15/18 23:04) Blood Culture (02/15/18 23:04) Wound Culture (02/15/18 23:04) Ct Pelvis W (02/16/18 00:01) Iohexol Injection (Omnipaque 350 Mg/Ml 1 (02/16/18 00:45) Ns (Ivpb) (Sodium Chloride 0.9%) (02/16/18 00:45) Insulin (Regular) Human (Humulin R (Per (02/16/18 00:45) Saline Lock/Iv-Start (02/16/18 00:37) Ns Iv 1000 Ml (Sodium Chloride 0.9%) (02/16/18 00:37) Vancomycin Injection (Vancomycin Injecti (02/16/18 00:45) Ceftriaxone For Iv Use (Rocephin For I (02/16/18 01:00) Medications Given in ED Current Medications Medications Dose Ordered Sig/Andreia Route Start Time Stop Time Status Last Admin Dose Admin Insulin Human Regular 25 unit ONCE ONCE IV 02/16/18 00:45 02/16/18 00:46 DC 02/16/18 00:50 25 UNIT Iohexol 100 ml ONCE ONCE IV 02/16/18 00:45 02/16/18 01:54 DC 02/16/18 00:37 100 ML Sodium Chloride 80 ml ONCE ONCE IV 02/16/18 00:45 02/16/18 01:54 DC 02/16/18 00:37 80 ML Sodium Chloride 1,000 ml @ 0 mls/hr Q0M ONCE IV 02/16/18 00:37 02/16/18 00:39 DC 02/16/18 00:49 1,000 MLS/HR Vancomycin HCl 1000 mg/Sodium Chloride 250 ml @ 250 mls/hr ONCE ONCE IV 02/16/18 00:45 02/16/18 01:44 DC 02/16/18 00:49 250 MLS/HR Vital Signs/I&O 02/15/18 23:59 Temp 98.1 Pulse 95 Resp 17 B/P (MAP) 187/109 (135) Pulse Ox 95 Blood Pressure Mean: 135 [facility] Bedside Testing Finger Stick Blood Glucose: 379 Blood Glucose Action Taken: Notified Progress Progress Note : Progress Note NO DETERIORATION IN PT'S CONDITION DURING ER STAY GIVEN IV FLUIDS AND INSULIN--REPEAT ACCUCHECK 185 GIVEN ANTIBIOTICS --VANCOMYCIN AND ROCEPHIN GAVE TORADOL AND FENTANYL FOR PAIN Diagnostic Imaging Comments CT PELVIS---SKIN THICKENING AND EDEMA/INFLAMMATION IN SUB Q FAT AT RIGHT GROIN, EXTENDING FROM DISTAL INGUINAL CANAL POSTERIORLY INTO GLUTEAL REGION, AND WITH ASSOCIATED RIGHT SCROTAL WALL THICKENING -CONSISTENT WITH CELLULITIS, WITHOUT A DISCRETE ABSCESS. DIVERTICULAR DISEASE WITHOUT DIVERTICULITIS--PER [facility] VIA FAX @ 0359 Reviewed: Reviewed by Me Departure Communication (Admissions) 0047--SPOKE WITH DR. FRANKEL, ACCEPTS PT FOR ADMIT. ORDERS NOTED FOR ROCEPHIN. Impression Primary Impression: RIGHT SCROTAL / PERINEUM / GLUTEAL CELLULITIS Additional Impressions: Uncontrolled diabetes mellitus HTN (hypertension) Electrolyte imbalance Disposition: ADMITTED INPATIENT Condition: Improved Admissions Decision to Admit Reason: Admit from ER (General) Decision to Admit/Date: Feb 16, 2018 Time/Decision to Admit Time: 00:50 Departure-Patient Inst. Referrals: [facility] (PCP) Primary Care Physician CHARAN PASCUAL (Family) Primary Care Physician OTIS VENTURA DO Feb 16, 2018 01:05
[2018-02-16] MEDS ORDERED: fentaNYL INJECTION 100 MCG/2 ML AMP IVP STA (01:16)
[2018-02-16 01:20] LABS: ABG BASE EXCESS -1.6 MMOL/L (-2.5-2.5); ABG OXYGEN SATURATION 96 % (94-100); ABG PCO2 37 MMHG (35-45); ABG PO2 68 MMHG (79-93); ABG TCO2 23.6 MMOL/L (21.0-31.0)
[2018-02-16 01:21] LABS: ALLENS TEST YES-POS
[2018-02-16 01:22] LABS: INSPIRED O2 ROOM AIR; PATIENT TEMP 98.1; VENTILATOR NO
[2018-02-16] MEDS ORDERED: KETOROLAC 30 MG/ML VIAL IVP ONE (01:30)
[2018-02-16] MEDS ORDERED: KETOROLAC 30 MG/ML VIAL IVP PRN (05:30)
[2018-02-16] MEDS ORDERED: ACETAMINOPHEN 500 MG TAB (TYLENOL) PO PRN (05:30)
[2018-02-16] MEDS ORDERED: fentaNYL INJECTION 100 MCG/2 ML AMP IV PRN (05:30)
[2018-02-16] MEDS: inSUlin ASPART (NovoLOG) 1 UNIT/0.01 ML (CHARGE PER UNIT) SC SCH ×4 (06:14→21:52)
[2018-02-16] MEDS ORDERED: FLU QUADRIvalent (5+ YOA) 2018-2019 (AFLURIA) 0.5 ML IM ONE (07:30)
--- NOTE | 2018-02-16 07:35 | Diagnostic Imaging Report ---
PROCEDURE: CT pelvis with contrast. TECHNIQUE: Oral and intravenous contrast were administered with pelvic CT performed. Date: February 16, 2018. Indication: 57-year-old male, right-sided inguinal abscess. Comparison: None. Findings: There is a small fat-containing right inguinal hernia and a small fat-containing left inguinal hernia. There is no identified drainable fluid collection or abscess within the included [id number] of imaging. There is a mildly prominent right inguinal lymph node on axial image 43 which measures 10 mm in short axis. There is asymmetric subcutaneous stranding in the right perineum. There are atherosclerotic calcifications. There is no identified abnormally enlarged lymph node within the pelvis specifically meeting CT size criteria for adenopathy. There is a small fat-containing umbilical hernia. There is no free pelvic fluid. The visualized segments of the intestinal tract are not distended. The testicles and scrotum are not particularly well evaluated on CT. There is a sclerotic lesion in the right iliac bone on axial image 15 measuring 10 mm in size with internal attenuation and overall appearance most suggestive of benign bone island. There is also a probable benign subcentimeter bone island in the right proximal femur. Impression: 1. No identified drainable fluid collection or abscess within the included [id number] of imaging. 2. Small bilateral fat-containing inguinal hernias. 3. Asymmetric subcutaneous stranding in the right perineum. 4. Slightly prominent right inguinal lymph node measuring up to approximately 10 mm in short axis. Dictated by: Dictated on workstation # [id number]
[2018-02-16] MEDS: POTASSIUM CHLORIDE INJ 10 MEQ in NS IV 1000 ML 1,000 ML IV SCH ×3 (07:59→13:08)
--- NOTE | 2018-02-16 17:01 | History & Physicial (CHS) ---
HPI History of Present Illness: 57 yo M with DM that presented with a draining abscess with cellulitis in his perineum. States that it started to get red and hard. He states that he is not sure what it looked like because he really could not see it. He noticed the area was getting painful 1 week from saturday. States that it started draining yesterday prior to him coming to ER. States that he has been on multiple meds for his DM but most recently Trulicity but it was stopped several months ago because he was unable to afford medication. He is not sure what his last A1c was. Source: patient, RN/MD Exam Limitations: no limitations Date seen by provider: Feb 16, 2018 Time Seen by Provider: 12:30 Attending Physician Rebekah Mccauley MD [facility] [place],Counts Include [address] Beds At [facility] Consult Date of Admission Feb 16, 2018 at 00:50 Home Medications Home Medications Reviewed patient Home Medication Reconciliation performed by pharmacy medication reconciliations pile driving technician and/or nursing. Patients Allergies have been reviewed. Allergies Coded Allergies: No Known Drug Allergies (Unverified , 09/17/10) NFV-Kpzeti-Wvhncm Hx Patient Social History Alcohol Use: Regular Use Recreational Drug Use: No (THC) Drug of Choice: THC-pt denies Smoking Status: Current Everyday Smoker Type Used: Cigarettes 2nd Hand Smoke Exposure: Yes Recent Foreign Travel: No Contact w/other who traveled: No Recent Hopitalizations: No Recent Infectious Disease Expo: No Physical Abuse Screen: No Sexual Abuse: No (0) Immunizations Up To Date Tetanus Booster (TDap): Unknown Past Medical History NIDDM HTN HLD Family Medical History Family History: Patient reports no known family medical history. Review of Systems (CHC) Constitutional: no symptoms reported; No chills, No fever EENTM: no symptoms reported Respiratory: no symptoms reported; No cough, No dyspnea on exertion, No short of breath Cardiovascular: no symptoms reported; No chest pain, No edema, No palpitations Gastrointestinal: no symptoms reported Genitourinary: dysuria, pain, other Musculoskeletal: no symptoms reported Skin: other Psychiatric/Neurological: No Symptoms Reported Reviewed Test Results Reviewed Test Results Lab Laboratory Tests Test 02/15/18 23:20 02/15/18 23:22 02/15/18 23:50 02/16/18 01:12 Range/Units White Blood Count 9.0 4.3-11.0 10^3/uL Red Blood Count 4.69 4.35-5.85 10^6/uL Hemoglobin 15.6 13.3-17.7 G/DL Hematocrit 44 40-54 % Mean Corpuscular Volume 93 80-99 FL Mean Corpuscular Hemoglobin 33 25-34 PG Mean Corpuscular Hemoglobin Concent 36 32-36 G/DL Red Cell Distribution Width 12.4 10.0-14.5 % Platelet Count 196 130-400 10^3/uL Mean Platelet Volume 11.0 H 7.4-10.4 FL Neutrophils (%) (Auto) 68 42-75 % Lymphocytes (%) (Auto) 18 12-44 % Monocytes (%) (Auto) 12 0-12 % Eosinophils (%) (Auto) 1 0-10 % Basophils (%) (Auto) 0 0-10 % Neutrophils # (Auto) 6.1 1.8-7.8 X 10^3 Lymphocytes # (Auto) 1.6 1.0-4.0 X 10^3 Monocytes # (Auto) 1.1 H 0.0-1.0 X 10^3 Eosinophils # (Auto) 0.1 0.0-0.3 10^3/uL Basophils # (Auto) 0.0 0.0-0.1 10^3/uL Prothrombin Time 11.5 L 12.2-14.7 SEC INR Comment 0.8 0.8-1.4 Activated Partial Thromboplast Time 27 24-35 SEC Sodium Level 130 L 135-145 MMOL/L Potassium Level 4.1 3.6-5.0 MMOL/L Chloride Level 96 L 98-107 MMOL/L Carbon Dioxide Level 20 L 21-32 MMOL/L Anion Gap 14 5-14 MMOL/L Blood Urea Nitrogen 17 7-18 MG/DL Creatinine 1.13 0.60-1.30 MG/DL Estimat Glomerular Filtration Rate > 60 BUN/Creatinine Ratio 15 Glucose Level 413 *H 70-105 MG/DL Lactic Acid Level 0.81 0.50-2.00 MMOL/L Calcium Level 10.1 8.5-10.1 MG/DL Corrected Calcium 9.8 8.5-10.1 MG/DL Total Bilirubin 0.9 0.1-1.0 MG/DL Aspartate Amino Transf (AST/SGOT) 23 5-34 U/L Alanine Aminotransferase (ALT/SGPT) 77 H 0-55 U/L Alkaline Phosphatase 97 40-136 U/L Total Protein 7.9 6.4-8.2 GM/DL Albumin 4.4 3.2-4.5 GM/DL Glucometer 379 H 70-110 MG/DL Urine Color YELLOW Urine Clarity CLEAR Urine pH 5 5-9 Urine Specific [place] 1.015 L 1.016-1.022 Urine Protein NEGATIVE NEGATIVE Urine Glucose (UA) 4+ H NEGATIVE Urine Ketones 4+ H NEGATIVE Urine Nitrite NEGATIVE NEGATIVE Urine Bilirubin NEGATIVE NEGATIVE Urine Urobilinogen NORMAL NORMAL MG/DL Urine Leukocyte Esterase NEGATIVE NEGATIVE Urine RBC (Auto) NEGATIVE NEGATIVE Urine RBC NONE /HPF Urine WBC NONE /HPF Urine Squamous Epithelial Cells 0-2 /HPF Urine Crystals NONE /LPF Urine Bacteria NEGATIVE /HPF Urine Casts NONE /LPF Urine Mucus NEGATIVE /LPF Urine Culture Indicated NO Blood Gas Puncture Site RIGHT RADIAL Blood Gas Patient Temperature 98.1 Arterial Blood pH 7.40 7.37-7.43 Arterial Blood Partial Pressure CO2 37 35-45 MMHG Arterial Blood Partial Pressure O2 68 L 79-93 MMHG Arterial Blood HCO3 23 23-27 MMOL/L Arterial Blood Total CO2 23.6 21.0-31.0 MMOL/L Arterial Blood Oxygen Saturation 96 94-100 % Arterial Blood Base Excess -1.6 -2.5-2.5 MMOL/L [place] Test YES-POS Blood Gas Ventilator Setting NO Blood Gas Inspired Oxygen ROOM AIR Test 02/16/18 01:57 02/16/18 05:40 02/16/18 11:13 02/16/18 15:47 Range/Units Glucometer 185 H 275 H 261 H 247 H 70-110 MG/DL Physical Exam-(CHC) Physical Exam Vital Signs VS - Last 72 Hours, by Label 02/15/18 02/16/18 02/16/18 02/16/18 23:59 02:00 02:19 02:30 Temp 98.1 97.3 98.2 Pulse 95 81 79 Resp 17 16 15 B/P (MAP) 187/109 (135) 147/85 (105) 142/85 (104) Pulse Ox 95 93 94 O2 Delivery Room Air Room Air Room Air 02/16/18 02/16/18 02/16/18 02/16/18 04:00 06:00 08:00 08:00 Temp 96.6 98.4 98.4 Pulse 71 75 78 Resp 16 16 20 B/P (MAP) 159/74 (102) 163/82 (109) 144/86 (105) Pulse Ox 94 94 95 O2 Delivery Room Air Room Air Room Air Room Air 02/16/18 02/16/18 02/16/18 02/16/18 10:00 12:00 13:31 14:05 Temp 98.2 98.2 98.2 98.2 Pulse 72 72 Resp 18 18 B/P (MAP) 149/80 (103) 150/80 (103) Pulse Ox 95 95 O2 Delivery Room Air Room Air 02/16/18 15:47 Temp 97.3 Pulse 73 Resp 18 B/P (MAP) Pulse Ox 95 O2 Delivery Room Air Capillary Refill : Less Than 3 Seconds General Appearance: WD/WN, no apparent distress HEENT: PERRL/EOMI Respiratory: chest non-tender, lungs clear, normal breath sounds, no respiratory distress, no accessory muscle use Cardiovascular: normal peripheral pulses, regular rate, rhythm, no edema, no murmur Gastrointestinal: normal bowel sounds, non tender, soft, no organomegaly Genital/Rectal: other (+ erythema and induration on the right side of the perinium, + draining purulent fluid, testicles normal) Extremities: normal range of motion, non-tender, no pedal edema, no calf tenderness, normal capillary refill Neurologic/Psychiatric: orthotist prosthetist II-XII nml as tested, no motor/sensory deficits, alert, normal mood/affect, oriented x 3 Skin: warm/dry Lymphatic: no adenopathy Assessment/Plan Assessment/Plan Admission Status: Inpatient Order (span 2 midnights) Reason for Inpatient Admission: Patient requires IV antiboitics and monitor of wound (1) Cellulitis, perineum Status: Acute Assessment & Plan: - Continue IV antibiotics to cover aerobic and anaerobic, draining, if worsening will get surgery consulted (2) Non-insulin dependent type 2 diabetes mellitus Status: Chronic Assessment & Plan: - A1c pending, Accuchecks AC/HS, SSI (3) HLD (hyperlipidemia) Status: Chronic Assessment & Plan: - Continue home meds Qualifiers: Qualified Codes: E78.2 - Mixed hyperlipidemia (4) HTN (hypertension) Status: Chronic Assessment & Plan: - Continue home meds Qualifiers: Qualified Codes: I10 - Essential (primary) hypertension (5) DVT prophylaxis Status: Acute Assessment & Plan: SCDs Clinical Quality Measures DVT/VTE Risk/Contraindication: Risk Factor Score Per Nursin RFS Level Per Nursing on Admit: 4+=Very High Copy Copies To 1: Aidee AMADO APRN GAULT, HOLLY R MD Feb 16, 2018 17:01
[2018-02-16] MEDS: DILTIAZEM 180 MG (CARDIZEM CD) CAP PO SCH (18:45)
[2018-02-16] MEDS: lisINopril 40 MG (PRINIVIL) TABLET PO SCH (18:45)
[2018-02-16] MEDS ORDERED: cefTRIAXone FOR IV USE 1,000 MG in NS (IVPB) 50 ML IV SCH (19:00)
[2018-02-16] MEDS ORDERED: ATORVASTATIN 40 MG (LIPITOR) TABLET PO SCH (21:00)
[2018-02-17 00:25] VITALS: BP 152/100
[2018-02-17] MEDS ORDERED: cefTRIAXone FOR IV USE 1,000 MG in NS (IVPB) 50 ML IV SCH (02:00)
[2018-02-17 04:00] VITALS: BP 162/66
[2018-02-17 05:08] LABS: BASOPHILS % (AUTO) 1 % (0-10); EOSINOPHILS # (AUTO) 0.2 10^3/uL (0.0-0.3); EOSINOPHILS % (AUTO) 4 % (0-10); HEMATOCRIT 42 % (40-54); HEMOGLOBIN 14.7 G/DL (13.3-17.7); LYMPHOCYTES # (AUTO) 1.8 X 10^3 (1.0-4.0); LYMPHOCYTES % (AUTO) 33 % (12-44); MEAN CORPUSCULAR HEMOGLOBIN 33 PG (25-34); MEAN CORPUSCULAR HGB CONC 35 G/DL (32-36); MEAN CORPUSCULAR VOLUME 95 FL (80-99); MONOCYTES # (AUTO) 0.6 X 10^3 (0.0-1.0); MONOCYTES % (AUTO) 10 % (0-12); NEUTROPHILS # (AUTO) 2.8 X 10^3 (1.8-7.8); NEUTROPHILS % (AUTO) 52 % (42-75); PLATELET COUNT 185 10^3/uL (130-400); RED BLOOD COUNT 4.47 10^6/uL (4.35-5.85); RED CELL DISTRIBUTION WIDTH 12.4 % (10.0-14.5); WHITE BLOOD COUNT 5.4 10^3/uL (4.3-11.0)
[2018-02-17 05:29] LABS: EOSINOPHILS % (MANUAL) 5 %; LYMPHOCYTES % (MANUAL) 42 %; MONOCYTES % (MANUAL) 10 %; NEUTROPHILS % (MANUAL) 43 %; RBC MORPH NORMAL
[2018-02-17 05:32] LABS: ALANINE AMINOTRANSFERASE 69 U/L (0-55); ALBUMIN 3.7 GM/DL (3.2-4.5); ALKALINE PHOSPHATASE 69 U/L (40-136); BILIRUBIN,TOTAL 0.7 MG/DL (0.1-1.0); BUN/CREATININE RATIO 14; CALCIUM 8.8 MG/DL (8.5-10.1); CARBON DIOXIDE 21 MMOL/L (21-32); CHLORIDE 103 MMOL/L (98-107); CREATININE SERUM 0.87 MG/DL (0.60-1.30); GFR ESTIMATED > 60; GLUCOSE 233 MG/DL (70-105); POTASSIUM 3.9 MMOL/L (3.6-5.0); SODIUM 135 MMOL/L (135-145); TOTAL PROTEIN 6.5 GM/DL (6.4-8.2)
[2018-02-17] MEDS: inSUlin ASPART (NovoLOG) 1 UNIT/0.01 ML (CHARGE PER UNIT) SC SCH ×2 (07:54→11:38)
[2018-02-17 08:00] VITALS: BP 181/94
[2018-02-17] MEDS: lisINopril 40 MG (PRINIVIL) TABLET PO SCH (08:28)
[2018-02-17] MEDS: DILTIAZEM 180 MG (CARDIZEM CD) CAP PO SCH (08:28)
[2018-02-17] MEDS ORDERED: CARV6.25 PO (08:42)
[2018-02-17] MEDS ORDERED: ASPI-983 PO (08:42)
[2018-02-17] MEDS ORDERED: PIOG45TA65 PO (08:42)
[2018-02-17] MEDS ORDERED: DILT240T10 PO (08:42)
[2018-02-17] MEDS ORDERED: MULT-35 PO (08:42)
[2018-02-17] MEDS ORDERED: OMEG-160 PO (08:42)
[2018-02-17] MEDS ORDERED: NON-FORMULARY MEDICATION 1 EA EA (Quinapril HCl 40 MG) PO SCH (09:00)
[2018-02-17] MEDS ORDERED: QUINAPRIL 20 MG (ACCUPRIL) TAB PO SCH (09:00)
[2018-02-17] MEDS ORDERED: ASPIRIN E.C. 81 MG (ECOTRIN) TAB PO SCH (09:00)
[2018-02-17] MEDS ORDERED: DILTIAZEM 180 MG (CARDIZEM CD) CAP PO SCH (09:00)
--- NOTE | 2018-02-17 11:41 | Discharge Summary ---
Diagnosis/Chief Complaint Date of Admission Feb 16, 2018 at 12:50 am Date of Discharge 02/17/18 Admission Diagnosis Admission Diagnosis Perineal Cellulits NIDDM with hyperglycemia Discharge Diagnosis see below Problems/Diagnosis: (1) Cellulitis, perineum Assessment & Plan: - Continue IV antibiotics to cover aerobic and anaerobic, draining, if worsening will get surgery consulted 02/17: Continue PO antibiotics for total of 10 days, will cover MRSA Status: Acute (2) Non-insulin dependent type 2 diabetes mellitus Assessment & Plan: - A1c pending, Accuchecks AC/HS, SSI 02/17: Will start Levemir at night, A1c pending, will need to monitor blood sugars closely Status: Chronic (3) HLD (hyperlipidemia) Assessment & Plan: - Continue home meds Qualifiers: Qualified Codes: E78.2 - Mixed hyperlipidemia Status: Chronic (4) HTN (hypertension) Assessment & Plan: - Continue home meds Qualifiers: Qualified Codes: I10 - Essential (primary) hypertension Status: Chronic (5) DVT prophylaxis Assessment & Plan: SCDs Status: Acute Chief Complaint/HPI Chief Complaint/HPI 57 yo M with DM that presented with a draining abscess with cellulitis in his perineum. States that it started to get red and hard. He states that he is not sure what it looked like because he really could not see it. He noticed the area was getting painful 1 week from saturday. States that it started draining yesterday prior to him coming to ER. States that he has been on multiple meds for his DM but most recently Trulicity but it was stopped several months ago because he was unable to afford medication. He is not sure what his last A1c was. Discharge Summary-Simple/Stand Consultations Discharge Physical Examination Allergies: Coded Allergies: No Known Drug Allergies (Unverified , 09/17/10) Vitals & I&Os Vital Sign - Last 12Hours Date Time Temp Pulse Resp B/P (MAP) Pulse Ox O2 Delivery O2 Flow Rate FiO2 02/17/18 08:00 Room Air 02/17/18 08:00 97.8 73 18 181/94 (123) 94 Intake and Output 02/17/18 00:00 Intake Total 3530 ml Output Total 975 ml Balance 2555 ml General Appearance: Alert, Oriented X3, Cooperative, No Acute Distress HEENT: Mucous Memb Moist/[place] Respiratory: Clear to Auscultation, Normal Air Movement Cardiovascular: Regular Rate, No Murmurs Abdominal: Normal Bowel Sounds, Soft, No Tenderness, No Hepatosplenomegaly, No Masses Extremities: No Edema, No Tenderness/Swelling Skin: Other (Improvement in cellulitis, mild induration and erythema, continues to drain purulent fluid) Neuro: Normal Gait, Normal Speech, Strength at 5/5 X4 Ext, Sensation Intact, Cranial Nerves 3-12 NL Psych/Mental Status: Mental Status NL, Mood NL Hospital Course See final discharge diagnosis. Pending Labs A1c Discussion & Recommendations 57 yo M that was admitted for perineal cellulitis. Patient was started on IV antibiotics and had significant improvement in erythema and induration. Will continue on PO antibiotics for a total of 10 days. Will have close f.u with PCP. Discuss the importance of close monitor of wound. Patient has not been taking anything for DM. Started Levemir qhs. Instructed to monitor blood sugars closely to help with wound healing. Discharge Condition at discharge stable Instructions to patient/family Please see electronic discharge instructions given to patient. Discharge Medications Reviewed and agree with Discharge Medication list on patient's Discharge Instruction sheet Clinical Quality Measures DVT/VTE Risk/Contraindication: Risk Factor Score Per Nursin RFS Level Per Nursing on Admit: 4+=Very High Copy Copies To 1: Aidee BEARD APRN, HOLLY R MD Feb 17, 2018 11:41
[2018-02-17] MEDS ORDERED: SULF1TAB35 PO (11:47)
[2018-02-17] MEDS ORDERED: INSU100I29 SQ (11:47)
--- NOTE | 2018-02-17 11:50 | Discharge Instructions ---
Discharge [facility] Discharge Medications New, Converted or Re-Newed RX: Transmitted to Pharmacy New Medications: Insulin Detemir (Levemir Flextouch) 100 Unit/1 Ml Insuln.pen 15 UNIT SQ HS, #1 EA Sulfamethoxazole/Trimethoprim (Bactrim Ds Tablet) 1 Each Tablet 1 EACH PO BID for 10 Days, #20 TAB Continued Medications: Aspirin (Aspirin EC) 81 Mg Tablet.dr 81 MG PO DAILY, TAB Atorvastatin Calcium (Atorvastatin Calcium) 40 Mg Tablet 40 MG PO Q48H, TAB Carvedilol (Coreg) 6.25 Mg Tablet 6.25 MG PO BID, TAB LAST FILLED #180 18 (WAS ONLY TAKING ONCE DAILY) Diltiazem HCl (Diltiazem ER) 240 Mg Tab.er.24h 240 MG PO DAILY, TAB LAST FILLED #90 -2-18 Multivitamin (Daily Multiple Vitamin) 1 Each Tablet 1 TAB PO DAILY, TAB [employer]-3/Dha/Epa/Fish Oil (Fish Oil 1,000 mg Softgel) 1 Each Capsule 1000 MG PO DAILY, CAP Quinapril HCl (Quinapril HCl) 40 Mg Tablet 40 MG PO DAILY, TAB LAST FILLED #90 18 Discontinued Medications: Pioglitazone HCl (Pioglitazone HCl) 45 Mg Tablet 45 MG PO DAILY, TAB LAST FILLED #90 18 Patient Instructions Goal/Follow Up Appt: You have an appt with Aidee Nair on Feb 19 @ 120 Return to The Hospital For: - Worsening pain or redness in wound Activity & Diet Discharge Diet: ADA Diet, Cardiac Diet Activity as Tolerated: Yes Orders-Post D/C & Referrals Pneu Vac Indicated: Yes Copy Copies To 1: Aidee AMADO HOLLY R MD Feb 17, 2018 11:50 am
[2018-02-17 12:00] VITALS: BP 152/80
[2018-02-17 12:13] VITALS: BP 152/80
[2019-02-17] MEDS ORDERED: cefTRIAXone 1 GM/NS 50 ML IVPB IV SCH ×2 (02:00)
== END 2018-02-17 12:02 | disposition home or self-care (01) | DRG 603 ==
LOC: EDUNIT# 22:34 → ER 22:36 → 4TH 02-16 00:50
PROVIDERS: ADMIT Family Medicine; ATTEND Family Medicine
DX: L03.315 Cellulitis of perineum (principal); E11.65 Type 2 diabetes mellitus with hyperglycemia; F17.210 Nicotine dependence, cigarettes, uncomplicated; I25.10 Atherosclerotic heart disease of native coronary artery without angina pectoris; I10 Essential (primary) hypertension; E78.5 Hyperlipidemia, unspecified; Z79.82 Long term (current) use of aspirin; Z79.84 Long term (current) use of oral hypoglycemic drugs; Z91.120 Patient's intentional underdosing of medication regimen due to financial hardship
CPT/HCPCS: 36415; 72193; 80053; 81000; 82805; 82962; 83605; 85007; 85025; 85027; 85610; 85730; 87040; 87070; 87205

== ENCOUNTER → 2018-08-19 | Outpatient (CLI) | payer SELFPAY ==
[~2018-08-19] MED LIST changes: +ASPI-983 PO; +CARV6.25 PO; +DILT240T10 PO; +INSU100I29 SQ; +MULT-35 PO; +OMEG-160 PO; +PIOG45TA65 PO; +SULF1TAB35 PO
--- NOTE | 2018-08-19 15:58 | Diagnostic Imaging Report ---
EXAMINATION: Magnetic resonance imaging of the right shoulder without contrast. DATE: August 19, 2018. COMPARISON: None. HISTORY: 57-year-old male, fall on the right shoulder approximately 2 months ago with right shoulder pain and decreased range of motion. Locking. TECHNIQUE: Magnetic Resonance Imaging sequences were performed of the shoulder without contrast. FINDINGS: ROTATOR CUFF, LIGAMENTS, TENDONS, AND MUSCLES: There is an anchor in the superior humeral head in the region of the supraspinatus tendon insertion, compatible with prior rotator cuff tendon repair. The supraspinatus tendon is intact. The infraspinatus and teres minor tendons are intact. There is a full-thickness tear of the subscapularis tendon with tendon retraction measuring approximately 1.8 cm. There is moderate fatty atrophy of the subscapularis muscle. LONG HEAD OF BICEPS: The long head of biceps tendon is perched on the lesser tuberosity. The long head of biceps tendon is intact. GLENOHUMERAL JOINT: The humeral head is well positioned relative to the glenoid. The labrum is grossly intact. There is no identified paralabral cyst. The articular cartilage is grossly intact. There is a small to moderate glenohumeral joint effusion. There is no identified intra-articular body or prominent synovitis. ACROMIOCLAVICULAR JOINT: There is mild widening of the acromioclavicular joint with acromioclavicular joint fluid. The coracoclavicular and coracoacromial ligaments are intact. There is no residual undersurface acromioclavicular osteophyte. BONE: There is no os acromiale. There is no acute fracture, bone contusion, or evidence of osteonecrosis. There is degenerative related marrow edema in the distal clavicle. BURSAE AND SOFT TISSUES: Fluid in the long head of biceps tendon sheath likely reflects normal glenohumeral joint communication. Additional bursal and soft tissue assessment is unremarkable. IMPRESSION: 1. Full-thickness tear of the subscapularis tendon with tendon retraction measuring 1.8 cm. Moderate fatty atrophy of the subscapularis muscle. 2. The long head of biceps tendon is perched on the lesser tuberosity. Negative for tear of the long head of biceps tendon. 3. Intact supraspinatus, infraspinatus, and teres minor tendons. An anchor in the superior humeral head suggests prior rotator cuff tendon repair of the supraspinatus. 4. Widening of the acromioclavicular joint with acromioclavicular joint fluid. This may be post operative related or relating to sequela of low-grade acromioclavicular joint separation injury. Intact coracoclavicular and coracoacromial ligaments. No undersurface acromioclavicular joint osteophyte. 5. No acute fracture, bone contusion, or evidence of osteonecrosis. 6. Grossly intact labrum. Small to moderate glenohumeral joint effusion without prominent synovitis or intra-articular body. Dictated by: Dictated on workstation # [id number]
== END ==
LOC: RAD 14:03
PROVIDERS: ATTEND Nurse Practitioner
DX: S46.011A Strain of muscle(s) and tendon(s) of the rotator cuff of right shoulder, initial encounter (principal); M12.811 Other specific arthropathies, not elsewhere classified, right shoulder
CPT/HCPCS: 73221

== ENCOUNTER → 2020-05-30 | Outpatient (CLI) | payer MEDICARE ==
[~2020-05-30] MED LIST changes: +ACHYD1T; +ACHYD1T PO; +ASPI-1238 PO; -ASPI-983 PO; -HYDR-3820; -HYDR-3820 PO
== END ==
LOC: CARD 12:00
PROVIDERS: ATTEND Internal Medicine Cardiovascular Disease
DX: I51.7 Cardiomegaly (principal)
CPT/HCPCS: 93306

== ENCOUNTER → 2020-05-31 | Outpatient (CLI) | payer MEDICARE ==
[~2020-05-31] VITALS: Ht 167 cm; Wt 104.0 kg
[~2020-05-31] MED LIST changes: +CATHETER FLUSH 10 ML SYR IV PRN; +REGADENOSON 0.4 MG/5 ML SYR (LEXISCAN) IV ONE
[2020-05-31 09:00] VITALS: BP 168/97
--- NOTE | 2020-05-31 13:15 | STRESS TEST ---
DATE OF SERVICE: 05/31/2020 RESTING AND POST REGADENOSON TECHNETIUM-99M TETROFOSMIN SPECT CT IMAGING CLINICAL DIAGNOSES: Chest discomfort, diabetes. ORDERING PHYSICIAN: Dr. Christy. PRIMARY PHYSICIAN: [facility]. Baseline images were carried out after injection of 10.93 mCi of technetium-99m Tetrofosmin. This was followed by 0.4 mg Regadenoson and 33 mCi of technetium-99m Tetrofosmin for stress imaging. The electrocardiogram showed sinus rhythm at baseline. The electrocardiogram did not change significantly with the Regadenoson infusion. The patient noted mild shortness of breath following Regadenoson infusion, which resolved in a few minutes. Review of images at rest and following stress indicates a predominantly fixed inferior perfusion defect. Gated images show inferior hypokinesis. Left ventricular ejection fraction is calculated to be 46%. Left ventricular end diastolic volume is 99 mL. TID is absent (1.07). CONCLUSIONS: 1. Inferior wall myocardial infarction with a small amount of regan-infarct ischemia 2. Inferior hypokinesis. 3. Mild impairment of global left ventricular systolic function with a calculated ejection fraction of 46%. Job ID: [id number] DocumentID: [id number] Dictated Date: 05/31/2020 12:28:59 [employer] Date: 05/31/2020 13:14:55 Dictated By: EDU CHRISTY MD, MA, FACP, FACC, MTDD
== END ==
LOC: CARD 07:42
PROVIDERS: ATTEND Internal Medicine Cardiovascular Disease
DX: I21.19 ST elevation (STEMI) myocardial infarction involving other coronary artery of inferior wall (principal); E11.9 Type 2 diabetes mellitus without complications
CPT/HCPCS: 78452; 93017; A9502

== ENCOUNTER → 2020-06-27 | Outpatient (CLI) | payer MEDICARE ==
[~2020-06-27] MED LIST changes: -CATHETER FLUSH 10 ML SYR IV PRN; -REGADENOSON 0.4 MG/5 ML SYR (LEXISCAN) IV ONE
--- NOTE | 2020-06-27 13:29 | Diagnostic Imaging Report ---
EXAMINATION: CT Lung Screening. INDICATION:45 pack-year smoking history. TECHNIQUE: Noncontrast, low-dose CT imaging performed according to the lung cancer screening protocol. Auto Exposure Controls were utilize during the CT exam to meet ALARA standards for radiation dose reduction. COMPARISON:Chest x-ray from 07/13/2017. There are no prior CT examinations available for comparison. FINDINGS: The plain film examination of the chest performed on 07/03/2017 failed to show any sign of an acute cardiopulmonary abnormality or of a lung mass. There is no parenchymal lung mass identified. There is a small 1.1 cm area of increased density along the anterior aspect of the lingula (image 192 of 244). I suspect that this is more likely due to scar formation than to neoplastic disease. There is no sign of failure, pneumonia or pleural effusion to indicate an acute abnormality. The heart size is within normal limits. There are coronary artery calcifications evident. The aorta is not abnormally dilated. There is no obvious mediastinal or hilar adenopathy. The thyroid gland was obscured by streak artifact. The sections through the upper abdomen failed to show any sign of an acute abnormality. The bone windows are unremarkable for a fracture or for destructive lesion. IMPRESSION: 1. The irregular parenchymal density in the anterior aspect of the lingula is more likely due to scar formation/chronic atelectasis than to a neoplastic disease. Even so, a six-month follow-up CT low-dose lung cancer screening exam would be recommended for further study. 2. There is no parenchymal nodule or mass is noted. 3. There is no sign of an acute cardiopulmonary abnormality. 4. There is coronary disease. LUNG-RADS CATEGORY:3 MODIFIER: OTHER SIGNIFICANT FINDINGS: Dictated by: Dictated on workstation # [id number]
== END ==
LOC: RAD 12:15
PROVIDERS: ATTEND Nurse Practitioner
DX: J98.4 Other disorders of lung (principal); I25.10 Atherosclerotic heart disease of native coronary artery without angina pectoris; Z87.891 Personal history of nicotine dependence
CPT/HCPCS: 71271

== ENCOUNTER 2020-08-16 06:48 | Day surgery (SDC) | payer MEDICARE ==
[~2020-08-16] VITALS: Ht 167.7 cm; Wt 104.5 kg
[2020-08-16] VITALS (12 sets, daily range): BP systolic 130–165; BP diastolic 80–95
[2020-08-16] MEDS ORDERED: LIDOCAINE 1% INJ 20 ML 20 ML VIAL ONE (07:05)
[2020-08-16] MEDS ORDERED: HEParin (CATH LAB) 2,000 ML IV ONE (07:05)
[2020-08-16] MEDS ORDERED: NS IV 1000 ML 1,000 ML ONE (07:05)
[2020-08-16] MEDS ORDERED: NS IV 1000 ML 1,000 ML IV SCH (07:15)
[2020-08-16 07:41] LABS: HEMATOCRIT 46 % (40-54); HEMOGLOBIN 15.6 g/dL (13.3-17.7); MEAN CORPUSCULAR HEMOGLOBIN 32 pg (25-34); MEAN CORPUSCULAR HGB CONC 34 g/dL (32-36); MEAN CORPUSCULAR VOLUME 95 fL (80-99); MEAN PLATELET VOLUME 9.6 fL (9.0-12.2); PLATELET COUNT 269 10^3/uL (130-400); WHITE BLOOD COUNT 6.6 10^3/uL (4.3-11.0)
[2020-08-16] MEDS ORDERED: CARV25TA PO (07:56)
[2020-08-16] MEDS ORDERED: METF-845 PO (07:56)
[2020-08-16] MEDS ORDERED: AMLO-251 PO (07:56)
[2020-08-16] MEDS ORDERED: CANA300T PO (07:56)
[2020-08-16] MEDS ORDERED: SEMA1PEN3 SQ (07:56)
[2020-08-16 08:04] LABS: PROTHROMBIN TIME PATIENT 13.2 SEC (12.2-14.7)
[2020-08-16 08:06] LABS: ALANINE AMINOTRANSFERASE 25 U/L (0-55); ALBUMIN 4.4 GM/DL (3.2-4.5); ALKALINE PHOSPHATASE 74 U/L (40-136); BILIRUBIN,TOTAL 0.7 MG/DL (0.1-1.0); BUN/CREATININE RATIO 13; CALCIUM 9.1 MG/DL (8.5-10.1); CARBON DIOXIDE 27 MMOL/L (21-32); CHLORIDE 102 MMOL/L (98-107); CHOLESTEROL 149 MG/DL (< 200); CREATININE SERUM 1.06 MG/DL (0.60-1.30); GFR ESTIMATED > 60; GLUCOSE 119 MG/DL (70-105); HDL CHOLESTEROL 39 MG/DL (40-60); SODIUM 140 MMOL/L (135-145); TOTAL PROTEIN 7.6 GM/DL (6.4-8.2); TRIGLYCERIDES 142 MG/DL (<150); VLDL CHOLESTEROL 28 MG/DL (5-40)
[2020-08-16] MEDS ORDERED: MIDAZOLAM 5 MG/5 ML (VERSED) VIAL ONE (09:51)
[2020-08-16] MEDS ORDERED: fentaNYL INJ 100 MCG/2 ML AMP ONE ×3 (09:51→14:11)
[2020-08-16] MEDS ORDERED: diphenhydrAMINE 50 MG/ML INJ (BENADRYL) ONE (10:14)
[2020-08-16] MEDS ORDERED: HEParin 1000 UNIT/ML (10ML VIAL) FOR BOLUS ONE (10:29)
[2020-08-16] MEDS ORDERED: NITRO DRIP 25000 MCG/D5W 250 ML IV ONE (10:29)
[2020-08-16] MEDS ORDERED: EPTIFIBATIDE BOLUS 20 ML IV ONE (10:34)
[2020-08-16] MEDS ORDERED: MIDAZOLAM 2 MG/2 ML (VERSED) VIAL ONE (11:11)
[2020-08-16] MEDS ORDERED: ASPIRIN 81 MG CHEW (CHILDREN'S ASA) ONE (12:01)
[2020-08-16] MEDS ORDERED: CLOPIDOGREL 300 MG (PLAVIX) TABLET PO ONE (12:01)
[2020-08-16] MEDS ORDERED: ACETAMINOPHEN 325 MG TABLET PO PRN (12:15)
[2020-08-16] MEDS ORDERED: PATIENT MAY USE OWN MEDS, ALL PO SCH (12:15)
[2020-08-16] MEDS ORDERED: NON-FORMULARY MEDICATION 1 EA EA (Semaglutide (Ozempic) 1 MG) SQ SCH (12:15)
--- NOTE | 2020-08-16 12:49 | CARDIAC CATHETERIZATION ---
DATE OF SERVICE: 08/16/2020 CARDIAC CATHETERIZATION AND CORONARY INTERVENTION REPORT The patient is a 59-year-old gentleman who has multiple coronary artery disease risk factors and who has been experiencing symptoms of crescendo angina despite an optimal medical regimen. Cardiac catheterization was recommended. Informed consent was obtained. DESCRIPTION OF PROCEDURE: He was brought to the cardiac catheterization laboratory in a fasting state. Right groin was prepared and draped in the usual sterile fashion. Lidocaine 1% was used for local anesthesia. Modified Seldinger technique was used to advance a 5-Danish sheath in right femoral artery. A 5-Danish JL4 catheter was used for left coronary angiography. A 5-Danish JR4 catheter was not engaged in the right coronary angiography. 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 Subsequently, percutaneous intervention was carried out to the right coronary artery and is described below. After that, we performed left heart catheterization and left ventricular angiography with a pigtail catheter. The pigtail catheter was pulled back and removed. We then proceeded with percutaneous intervention to the first obtuse marginal branch of the left circumflex artery that is described below. PERCUTANEOUS INTERVENTION TO THE RIGHT CORONARY ARTERY: After diagnostic angiography of the coronary arteries, we exchanged the sheath over a wire for a 6-Danish sheath and used a 6-Danish AL2 catheter to engage the right coronary artery because of its high anomalous origin. Advancing a wire across the severe proximal lesion in the right coronary artery proved quite difficult. We tried various wires. Eventually, we were able to cross the lesion with a Whisper medium support wire. The tip was placed in the distal vessel. We proceeded with balloon angioplasty with a 2.0 x 20 mm balloon and we were then able to stent this long lesion with Integrity 2.25 x 30 mm stent. The stenosis was reduced from 99% to 0% residual and flow throughout the vessel was normal. PERCUTANEOUS INTERVENTION TO THE LEFT CIRCUMFLEX ARTERY: We intervened on the first obtuse marginal branch of the left circumflex artery, which was exhibiting 99% proximal stenosis. We used a 6-Danish JL4 guide catheter. We used various wires to try and cross the lesion. Finally, we were able to cross with a Choice PT Graphix wire and the tip was placed in the distal vessel. Balloon was very difficult to advance. We were finally able to advance a 1.5 x 20 mm balloon and we were able to carry out balloon across the entire lesion. This restored a fair lumen, but the stenosis was still greater than 80%. We then carried out balloon angioplasty with a 2.0 x 20 mm balloon. Finally, we stented this long lesion with Alpine Xience 2.25 x 30 mm stent. The end result was that a 99% stenosis was reduced to 0% residual and antegrade flow improved from ANU 2 to ANU 3. The patient tolerated the procedure well. The patient received a total of 8000 units of intravenous heparin and a double bolus Integrilin during this procedure. At the end of the procedure, he received 324 mg of oral aspirin and 600 mg of oral Plavix. HEMODYNAMICS: Left ventricular end-diastolic pressure following coronary angiography was 13 mmHg. There is no significant pressure gradient on pullback across the aortic valve. Ascending aortic pressure was 107/73 with a mean of 91 mmHg. CORONARY ANGIOGRAPHY: Left main coronary artery does not exhibit significant obstructive disease. Left anterior descending artery had mild plaques. Left circumflex artery was codominant and had 99% stenosis in the proximal portion of his first obtuse marginal branch. This was successfully stented with Xience Candi 2.25 x 33 mm stent. The right coronary artery is codominant and had a long up to 99% stenosis in its proximal portion, which was successfully stented with Integrity 2.25 x 30 mm stent. LEFT VENTRICULAR ANGIOGRAPHY: Left ventricular angiography was carried out in the right anterior oblique projection. Global left ventricular systolic function is normal. No regional wall motion abnormalities are seen in this view. Left ventricular ejection fraction is approximately 60%. CONCLUSIONS: 1. Coronary artery disease primarily consisting of up to 99% proximal and mid vessel stenosis of the right coronary artery that was successfully stented with Integrity 2.25 x 30 mm stent, and up to 99% stenosis of the proximal portion of the first obtuse marginal branch of the left circumflex that was stented with Xience Candi 2.25 x 33 mm stent. The rest of the coronary vessels had mild plaques. 2. Normal global left ventricular systolic function with ejection fraction approximately 60%. 3. Left ventricular end-diastolic pressure is at the high end of normal. DISCUSSION AND RECOMMENDATIONS: Risk factor modification has been reviewed. Dual antiplatelet therapy has been initiated. Statin therapy is being continued as our beta-blockers and REBA inhibitors. Job ID: [id number] DocumentID: [id number] Dictated Date: 08/16/2020 12:21:06 Trailhead Maintenance Worker Date: 08/16/2020 12:48:02 Dictated By: EDU RODRIGUEZ MD, MA, FACP, FACC, MTDD
[2020-08-16] MEDS: NS IV 1000 ML 1,000 ML IV SCH ×2 (13:41→22:32)
[2020-08-16] MEDS ORDERED: ATROPINE INJECTION 1 MG/10 ML SYR (ABBOTT) ONE (14:11)
[2020-08-16] MEDS: inSUlin ASPART (NovoLOG) 1 UNIT/0.01 ML (CHARGE PER UNIT) SC SCH ×2 (15:31→20:49)
[2020-08-16] MEDS: CARVEDILOL 25 MG TAB PO SCH (20:23)
[2020-08-17] VITALS: BP 143/91
[2020-08-17 03:54] LABS: BASOPHILS # (AUTO) 0.1 10^3/uL (0.0-0.1); BASOPHILS % (AUTO) 1 % (0-10); EOSINOPHILS # (AUTO) 0.2 10^3/uL (0.0-0.3); EOSINOPHILS % (AUTO) 3 % (0-10); HEMATOCRIT 42 % (40-54); HEMOGLOBIN 14.2 g/dL (13.3-17.7); LYMPHOCYTES % (AUTO) 25 % (12-44); MEAN CORPUSCULAR HEMOGLOBIN 32 pg (25-34); MEAN CORPUSCULAR HGB CONC 34 g/dL (32-36); MEAN CORPUSCULAR VOLUME 93 fL (80-99); MEAN PLATELET VOLUME 9.7 fL (9.0-12.2); MONOCYTES # (AUTO) 0.9 10^3/uL (0.0-1.0); MONOCYTES % (AUTO) 11 % (0-12); NEUTROPHILS # (AUTO) 4.8 10^3/uL (1.8-7.8); NEUTROPHILS % (AUTO) 60 % (42-75); PLATELET COUNT 243 10^3/uL (130-400); WHITE BLOOD COUNT 7.9 10^3/uL (4.3-11.0)
[2020-08-17 04:00] VITALS: BP 145/89
[2020-08-17 04:09] LABS: CHLORIDE 102 MMOL/L (98-107); POTASSIUM 4.3 MMOL/L (3.6-5.0); SODIUM 138 MMOL/L (135-145)
[2020-08-17 04:10] LABS: CALCIUM 9.1 MG/DL (8.5-10.1)
[2020-08-17 04:11] LABS: GLUCOSE 108 MG/DL (70-105)
[2020-08-17 04:12] LABS: CARBON DIOXIDE 26 MMOL/L (21-32)
[2020-08-17 04:15] LABS: CREATININE SERUM 0.86 MG/DL (0.60-1.30); GFR ESTIMATED > 60
[2020-08-17 04:16] LABS: BUN/CREATININE RATIO 14
[2020-08-17 04:17] LABS: MAGNESIUM 1.9 MG/DL (1.6-2.4)
[2020-08-17 07:00] VITALS: BP 137/85
[2020-08-17] MEDS ORDERED: INVOKANA 300 MG PO SCH (07:00)
[2020-08-17] MEDS ORDERED: MULTIVIT W/MINERALS TAB (THERAGRAN M) PO SCH (07:00)
[2020-08-17] MEDS: inSUlin ASPART (NovoLOG) 1 UNIT/0.01 ML (CHARGE PER UNIT) SC SCH (07:25)
[2020-08-17 07:35] VITALS: BP 137/85
[2020-08-17] MEDS: NS IV 1000 ML 1,000 ML IV SCH (07:42)
--- NOTE | 2020-08-17 07:57 | Progress Note - Cardiology ---
Cardiology SOAP Progress Note Subjective: Sitting up in recliner at the bedside No c/o CP, SOB, palpitations States he is feeling much better today Objective: I&O/Vital Signs 08/16/20 08/16/20 08/16/20 08/17/20 21:00 22:00 23:00 00:00 Pulse 77 67 66 Resp 12 7 16 B/P (MAP) 150/90 (110) 165/92 (116) 143/88 (106) Pulse Ox 94 96 94 95 O2 Delivery Room Air Room Air Room Air Room Air 08/17/20 08/17/20 08/17/20 08/17/20 00:00 01:00 04:00 04:00 Pulse 61 61 70 Resp 35 16 B/P (MAP) 143/91 (108) 145/89 (107) Pulse Ox 95 96 95 O2 Delivery Room Air Room Air Room Air 08/17/20 08/17/20 06:32 07:35 Temp 36.3 Pulse 77 82 Resp 16 B/P (MAP) 137/85 (102) Pulse Ox 96 O2 Delivery Room Air 08/17/20 00:00 Intake Total 740 ml Output Total 1800 ml Balance -1060 ml Weight (Pounds): 240 Weight (Ounces): 0.0 Weight (Calculated Kilograms): 108.955939 Side: right Groin site without hematoma: Yes Condition: DP/PT pulses palpable, extremity w/d/p Bruising: mild bruising Constitutional: AAO x 3, well-developed, well-nourished Respiratory: No accessory muscle use, No respiratory distress; chest expansion is symmetric, chest is bilaterally symmetric, lungs clear to auscultation Cardiovascular: regular rate-rhythm; No JVD; S1 and S2 Gastrointestional: No tender; soft, round, audible bowel sounds Extremities: no lower extremity edema bilateral Neurologic/Psychiatric: grossly intact (moves all extremities) Skin: No rash on exposed areas, No ulcerations on exposed areas Results/Procedures: Labs Laboratory Tests 08/16/20 20:38: Glucometer 150H 08/17/20 03:45: White Blood Count 7.9, Red Blood Count 4.50, Hemoglobin 14.2, Hematocrit 42, Mean Corpuscular Volume 93, Mean Corpuscular Hemoglobin 32, Mean Corpuscular Hemoglobin Concent 34, Red Cell Distribution Width 13.1, Platelet Count 243, Mean Platelet Volume 9.7, Immature Granulocyte % (Auto) 0, Neutrophils (%) (Auto) 60, Lymphocytes (%) (Auto) 25, Monocytes (%) (Auto) 11, Eosinophils (%) (Auto) 3, Basophils (%) (Auto) 1, Neutrophils # (Auto) 4.8, Lymphocytes # (Auto) 2.0, Monocytes # (Auto) 0.9, Eosinophils # (Auto) 0.2, Basophils # (Auto) 0.1, Immature Granulocyte # (Auto) 0.0, Sodium Level 138, Potassium Level 4.3, Chloride Level 102, Carbon Dioxide Level 26, Anion Gap 10, Blood Urea Nitrogen 12, Creatinine 0.86, Estimat Glomerular Filtration Rate > 60, BUN/Creatinine Ratio 14, Glucose Level 108H, Calcium Level 9.1, Magnesium Level 1.9 Microbiology 08/16/20 MRSA Screen - Final, Complete MRSA not isolated Procedures S/P cardiac cath with successful intervention on 08-16-20 A/P: Assessment: Coronary artery disease: - MPI or 3 shows IMI with regan-infarct ischemia with crescendo angina, subsequent cardiac cath below - Cardiac cath of 08-16-20: up to 99% proximal and mid vessel stenosis of the right coronary artery that was successfully stented with Integrity 2.25 x 30 mm stent, and up to 99% stenosis of the proximal portion of the first obtuse marginal branch of the left circumflex that was stented with Xience Candi 2.25 x 33 mm stent. The rest of the coronary vessels had mild plaques. Normal global left ventricular systolic function with ejection fraction approximately 60%. Left ventricular end-diastolic pressure is at the high end of normal. Hypertension Hyperlipidemia, treated with statin, followed by pcp DM 2 Quit smoking and drinking in 2019 Abnormal ECG. ECG of 05/19/20 shows NSR and nonspecific IVCD; old IMI cannot be excluded Plan: S/P successful PCI on 08-16-20 OK to discharge home Continue current medications including DAPT, statin and BB Resume Metformin on Saturday F/U appt in 2 weeks STEPHANIE COTTRELL August 17, 2020 07:57
[2020-08-17] MEDS ORDERED: CLOP75TA28 PO (08:04)
--- NOTE | 2020-08-17 08:06 | Discharge Inst-Cardiology ---
Discharge Inst-Cardiac Discharge Medications New Medications: Clopidogrel Bisulfate (Clopidogrel) 75 Mg Tablet 75 MG PO DAILY, #90 TAB 3 Refills Continued Medications: Amlodipine Besylate (Amlodipine Besylate) 10 Mg Tablet 10 MG PO DAILY, TAB Aspirin (Aspirin EC) 81 Mg Tablet.dr 81 MG PO DAILY, TAB Atorvastatin Calcium (Atorvastatin Calcium) 40 Mg Tablet 40 MG PO HS, TAB Canagliflozin (Invokana) 300 Mg Tablet 300 MG PO DAILY, TAB Carvedilol (Carvedilol) 25 Mg Tablet 25 MG PO BID, TAB Metformin HCl (Metformin HCl ER) 500 Mg [id number] 1000 MG PO BID Multivitamin (Daily Multiple Vitamin) 1 Each Tablet 1 TAB PO DAILY, TAB [place]-3/Dha/Epa/Fish Oil (Fish Oil 1,000 mg Softgel) 1 Each Capsule 2000 MG PO DAILY, CAP Quinapril HCl (Quinapril HCl) 40 Mg Tablet 40 MG PO DAILY, TAB LAST FILLED #90 7-2-18 Semaglutide (Ozempic) 1 Mg/0.75 Ml Pen.injctr 1 MG SQ WEEKLY, VIAL New, Converted or Re-Newed RX: Transmitted to Pharmacy Patient Instructions Patient Instructions: DO NOT RESTART METFORMIN UNTIL SATURDAY, AUGUST 19, 2020 Please schedule follow up appointment to see Dr. Christy in 2 weeks STEPHANIE COTTRELL August 17, 2020 08:06
[2020-08-17] MEDS: CARVEDILOL 25 MG TAB PO SCH (08:49)
[2020-08-17] MEDS ORDERED: amLODIPine 10 MG (NORVASC) TAB PO SCH (09:00)
[2020-08-17] MEDS ORDERED: OMEGA 3 (FISH OIL) 1000 MG CAP PO SCH (09:00)
[2020-08-17] MEDS ORDERED: NON-FORMULARY MEDICATION 1 EA EA (Omega-3/Dha/Epa/Fish Oil (Fish Oil 1,000 mg Softgel) 2,0 PO SCH (09:00)
[2020-08-17] MEDS ORDERED: ASPIRIN 81 MG CHEW (CHILDREN'S ASA) PO SCH (09:00)
[2020-08-17] MEDS ORDERED: QUINAPRIL 40 MG PO SCH (09:00)
[2020-08-17] MEDS ORDERED: CLOPIDOGREL 75 MG (PLAVIX) TABLET PO SCH (09:00)
[2020-08-17] MEDS ORDERED: ASPIRIN E.C. 81 MG (ECOTRIN) TAB PO SCH (09:00)
[2020-08-17] MEDS ORDERED: NON-FORMULARY MEDICATION 1 EA EA (Multivitamin (Daily Multiple Vitamin) 1 TAB) PO SCH (09:00)
--- NOTE | 2020-08-17 11:01 | Progress Note - Cardiology ---
Cardiology SOAP Progress Note Subjective: No cp or palp or syncope or shortness of breath No groin or leg discomfort or discoloration No n/v/d Objective: I&O/Vital Signs 08/16/20 08/17/20 08/17/20 08/17/20 23:00 00:00 00:00 01:00 Pulse 66 61 61 Resp 16 35 B/P (MAP) 143/88 (106) 143/91 (108) Pulse Ox 94 95 95 O2 Delivery Room Air Room Air Room Air 08/17/20 08/17/20 08/17/20 08/17/20 04:00 04:00 06:32 07:00 Pulse 70 77 69 Resp 16 15 B/P (MAP) 145/89 (107) 137/85 (102) Pulse Ox 96 95 95 O2 Delivery Room Air Room Air Room Air 08/17/20 08/17/20 08/17/20 08/17/20 07:35 08:00 08:15 09:00 Temp 36.3 Pulse 82 80 70 Resp 16 22 21 B/P (MAP) 137/85 (102) Pulse Ox 96 96 95 O2 Delivery Room Air Room Air Room Air Room Air 08/17/20 10:15 B/P (MAP) 08/17/20 00:00 Intake Total 740 ml Output Total 1800 ml Balance -1060 ml Weight (Pounds): 240 Weight (Ounces): 0.0 Weight (Calculated Kilograms): 108.376755 Side: right Groin site without hematoma: Yes Condition: DP/PT pulses palpable, extremity w/d/p Bruising: mild bruising Constitutional: AAO x 3, well-developed, well-nourished Respiratory: No accessory muscle use, No respiratory distress; chest expansion is symmetric, chest is bilaterally symmetric, lungs clear to auscultation Cardiovascular: regular rate-rhythm; No JVD; S1 and S2 Gastrointestional: No tender; soft, round, audible bowel sounds Extremities: no lower extremity edema bilateral Neurologic/Psychiatric: grossly intact (moves all extremities) Skin: No rash on exposed areas, No ulcerations on exposed areas Results/Procedures: Labs Laboratory Tests 08/16/20 20:38: Glucometer 150H 08/17/20 03:45: White Blood Count 7.9, Red Blood Count 4.50, Hemoglobin 14.2, Hematocrit 42, Mean Corpuscular Volume 93, Mean Corpuscular Hemoglobin 32, Mean Corpuscular Hemoglobin Concent 34, Red Cell Distribution Width 13.1, Platelet Count 243, Mean Platelet Volume 9.7, Immature Granulocyte % (Auto) 0, Neutrophils (%) (Auto) 60, Lymphocytes (%) (Auto) 25, Monocytes (%) (Auto) 11, Eosinophils (%) (Auto) 3, Basophils (%) (Auto) 1, Neutrophils # (Auto) 4.8, Lymphocytes # (Auto) 2.0, Monocytes # (Auto) 0.9, Eosinophils # (Auto) 0.2, Basophils # (Auto) 0.1, Immature Granulocyte # (Auto) 0.0, Sodium Level 138, Potassium Level 4.3, Chloride Level 102, Carbon Dioxide Level 26, Anion Gap 10, Blood Urea Nitrogen 12, Creatinine 0.86, Estimat Glomerular Filtration Rate > 60, BUN/Creatinine Ratio 14, Glucose Level 108H, Calcium Level 9.1, Magnesium Level 1.9 Microbiology 08/16/20 MRSA Screen - Final, Complete MRSA not isolated Laboratory Tests 08/16/20 07:28 08/17/20 03:45 A/P: Assessment: Coronary artery disease: - MPI or 05-31-20 shows IMI with regan-infarct ischemia, treated medically, but crescendo angina, subsequent cardiac cath below - Cardiac cath of 08-16-20: up to 99% proximal and mid vessel stenosis of the right coronary artery that was successfully stented with Integrity 2.25 x 30 mm stent, and up to 99% stenosis of the proximal portion of the first obtuse marginal branch of the left circumflex that was stented with Xience Candi 2.25 x 33 mm stent. The rest of the coronary vessels had mild plaques. Normal global left ventricular systolic function with ejection fraction approximately 60%. Left ventricular end-diastolic pressure is at the high end of normal. Hypertension Hyperlipidemia, treated with statin, followed by pcp DM 2 Quit smoking and drinking in 2019 Abnormal ECG. ECG of 05/19/20 shows NSR and nonspecific IVCD; old IMI cannot be excluded Plan: I discussed with him and his in detail his cardiac findings and interventions undertaken Continue current medications including DAPT, statin and BB Resume Metformin on Saturday Compliance with meds advised Risk factor modification discussed Advised to continue to refrain from smoking Questions answered F/U appt in 2 weeks EDU RODRIGUEZ MD FACP FAC CCDS August 17, 2020 11:01
== END 2020-08-17 10:15 | disposition home or self-care (01) ==
LOC: CATH 06:48 → ICU 13:00 → CATH 08-17 10:15
PROVIDERS: ATTEND Internal Medicine Cardiovascular Disease
DX: I25.118 Atherosclerotic heart disease of native coronary artery with other forms of angina pectoris (principal); I10 Essential (primary) hypertension; E78.5 Hyperlipidemia, unspecified; E11.9 Type 2 diabetes mellitus without complications; Z79.82 Long term (current) use of aspirin; Z79.899 Other long term (current) drug therapy; Z79.84 Long term (current) use of oral hypoglycemic drugs; Z87.891 Personal history of nicotine dependence; Z98.52 Vasectomy status
CPT/HCPCS: 80048; 80053; 80061; 82947; 83735; 85025; 85027; 85610; 85730; 87081; 93005; 93458; C1725 ×3; C1769 ×3; C1874 ×2; C1887; C1894 ×2; C9600; C9601; 36415

== ENCOUNTER → 2021-05-11 | Outpatient (CLI) | payer MEDICARE ==
[~2021-05-11] MED LIST changes: +AMLO-251 PO; +CANA300T PO; +CARV25TA PO; +CLOP75TA28 PO; +METF-845 PO; +RT-ALBUTEROL SULF 2.5 MG/3 ML PRE-MIX VIAL INH ONE; +SEMA1PEN3 SQ; -SULF1TAB35 PO; +SULF1TAB38 PO
== END ==
LOC: RT 09:15
PROVIDERS: ATTEND Nurse Practitioner Family
DX: J44.9 Chronic obstructive pulmonary disease, unspecified (principal)
CPT/HCPCS: 94060; 94726; 94729

== ENCOUNTER → 2021-07-11 | Outpatient (CLI) | payer MEDICARE ==
[~2021-07-11] VITALS: Ht 170 cm; Wt 104.0 kg
[~2021-07-11] MED LIST changes: +REGADENOSON 0.4 MG/5 ML SYR (LEXISCAN) IV ONE; -RT-ALBUTEROL SULF 2.5 MG/3 ML PRE-MIX VIAL INH ONE
[2021-07-11] MEDS: CATHETER FLUSH 10 ML SYR IVP PRN ×2 (07:41→09:12)
[2021-07-11 09:11] VITALS: BP 127/80
--- NOTE | 2021-07-12 10:51 | STRESS TEST ---
DATE OF SERVICE: 07/11/2021 RESTING AND POST REGADENOSON TECHNETIUM-99M TETROFOSMIN SPECT CT IMAGING ORDERING PHYSICIAN: Dr. Christy. PRIMARY PHYSICIAN: [facility]. CLINICAL DIAGNOSIS: Coronary artery disease. Baseline images were carried out after injection of 10.47 mCi of technetium-99m Tetrofosmin. This was followed by 0.4 mg regadenoson and 31 mCi of technetium-99m Tetrofosmin for stress imaging. The electrocardiogram showed sinus rhythm at baseline. It did not change significantly with the regadenoson infusion. The patient tolerated the procedure well. Review of images at rest and following stress indicates a small to moderate basal inferior perfusion defect that is transient. Gated images show well preserved global left ventricular systolic function without any distinct regional wall motion abnormality. Left ventricular ejection fraction is calculated to be 58%. CONCLUSIONS: 1. The study is suggestive of a small to moderate amount of basal inferior ischemia. 2. No significant regional wall motion abnormality. 3. Left ventricular ejection fraction is calculated to be 58%. Job ID: [id number] DocumentID: [id number] Dictated Date: 07/12/2021 09:35:32 Permit Technician Date: 07/12/2021 10:50:52 Dictated By: EDU CHRISTY MD, MA, FACP, FACC,
== END ==
LOC: CARD 08:00
PROVIDERS: ATTEND Internal Medicine Cardiovascular Disease
DX: I25.10 Atherosclerotic heart disease of native coronary artery without angina pectoris (principal)
CPT/HCPCS: 78452; 93017; A9502

== ENCOUNTER 2021-07-25 10:00 | Day surgery (SDC) | payer MEDICARE ==
[~2021-07-25] VITALS: Ht 165.1 cm; Wt 107.3 kg
[2021-07-25] VITALS (15 sets, daily range): BP systolic 108–158; BP diastolic 61–95
[2021-07-25 08:08] LABS: HEMATOCRIT 45 % (40-54); HEMOGLOBIN 15.1 g/dL (13.3-17.7); MEAN CORPUSCULAR HEMOGLOBIN 32 pg (25-34); MEAN CORPUSCULAR HGB CONC 33 g/dL (32-36); MEAN CORPUSCULAR VOLUME 95 fL (80-99); MEAN PLATELET VOLUME 9.2 fL (9.0-12.2); PLATELET COUNT 278 10^3/uL (130-400); WHITE BLOOD COUNT 7.4 10^3/uL (4.3-11.0)
[2021-07-25 08:23] LABS: INR 0.9 (0.8-1.4); PROTHROMBIN TIME PATIENT 12.5 SEC (12.2-14.7)
[2021-07-25 08:30] LABS: ALBUMIN 4.3 GM/DL (3.2-4.5); BILIRUBIN,TOTAL 0.8 MG/DL (0.1-1.0); CALCIUM 9.3 MG/DL (8.5-10.1); CREATININE SERUM 0.98 MG/DL (0.60-1.30); POTASSIUM 3.9 MMOL/L (3.6-5.0); TOTAL PROTEIN 7.4 GM/DL (6.4-8.2)
[~2021-07-25 10:00] MED LIST changes: +ASPI-999 PO; +BUDE10.2 IH; +CETI10TA17 PO; +DOXA1TAB2 PO; +HEParin (CATH LAB) 2,000 ML IV ONE; +LIDOCAINE 1% INJ 20 ML VIAL ONE; +METF-865 PO; +MONT-40 PO; +MULT-1136 PO; +NS IV 1000 ML 1,000 ML IV SCH; +NS IV 1000 ML 1,000 ML ONE; +OMG1KC PO; -REGADENOSON 0.4 MG/5 ML SYR (LEXISCAN) IV ONE; +RT-ALBUINH IH; +TIOT18CA2 IH
[2021-07-25] MEDS ORDERED: fentaNYL INJ 100 MCG/2 ML AMP ONE (10:37)
[2021-07-25] MEDS ORDERED: MIDAZOLAM 5 MG/5 ML (VERSED) VIAL ONE (10:37)
[2021-07-25] MEDS ORDERED: EPTIFIBATIDE BOLUS 20 ML IV ONE (11:14)
[2021-07-25] MEDS ORDERED: HEParin 1000 UNIT/ML (10ML VIAL) FOR BOLUS ONE (11:14)
[2021-07-25] MEDS ORDERED: ASPIRIN 81 MG CHEW (CHILDREN'S ASA) ONE (11:35)
[2021-07-25] MEDS ORDERED: CLOPIDOGREL 300 MG (PLAVIX) TABLET PO ONE (11:35)
--- NOTE | 2021-07-25 12:06 | Cardiac Procedure Note-CS/ASA ---
Pre-Procedure Note Pre-Op Procedure Note H&P Reviewed The H&P was reviewed, patient examined and no changes noted. Date H&P Reviewed: Jul 25, 2021 Time H&P Reviewed: 11:00 Conscious Sedation Pre-Proced Time 11:00 ASA Score 3 For ASA 3 and 4: Consider anesthesia and medical clearance. Also, for patients with a history of failed moderate sedation consider anesthesia. Airway Lungs Heart ASA score ASA 1: a normal healthy patient ASA 2: a patient with a mild systemic disease (mid diabetes, controlled hypertension, obesity ASA 3: a patient with a severe systemic disease that limits activity (angina, COPD, prior Myocardial infarction) ASA 4: a patient with an incapacitating disease that is a constant threat to life (CHF, renal failure) ASA 5: a moribund patient not expected to survive 24 hrs. (ruptured aneurysm) ASA 6: a declared brain- patient whose organs are being harvested. For emergent operations, add the letter E after the classification Mallampati Classification Grade 2 Sedation Plan Analgesia, Amnesia, Plan communicated to team members, Discussed options with patient/fam, Discussed risks with patient/fam The patient is an appropriate candidate to undergo the planned procedure, sedation, and anesthesia. The patient immediately re-assessed prior to indication. EDU RODRIGUEZ MD FACP FAC CCDS Jul 25, 2021 12:06
[2021-07-25] MEDS ORDERED: NON-FORMULARY MEDICATION 1 EA EA (Semaglutide (Ozempic) 0.25 MG) SQ SCH (12:15)
[2021-07-25] MEDS ORDERED: PATIENT MAY USE OWN MEDS, ALL PO SCH (12:15)
[2021-07-25] MEDS ORDERED: RT-ALBUTEROL SULF 2.5 MG/3 ML PRE-MIX VIAL IH PRN (12:15)
--- NOTE | 2021-07-25 12:52 | CARDIAC CATHETERIZATION ---
DATE OF SERVICE: 07/25/2021 CARDIAC CATHETERIZATION AND CORONARY INTERVENTION REPORT INDICATION FOR PROCEDURE: The patient is a 60-year-old gentleman with known coronary artery disease, who has had stenting of the right coronary and an obtuse marginal branch of the left circumflex in 07/2020. Lately, he has had recurrence of angina and has had an abnormal stress test as well. This stress test has indicated basal inferior ischemia. Cardiac catheterization was recommended. Informed consent was obtained for cardiac catheterization and possible ad hoc coronary intervention. DESCRIPTION OF PROCEDURE: He was brought to the cardiac catheterization laboratory in a fasting state. Right groin was prepared and draped in the usual sterile fashion. Lidocaine 1% was used for local anesthesia. Modified Seldinger technique was used to advance a 5-Slovak sheath in the right femoral artery, 5-Slovak JL4 catheter for left coronary angiography, 5-Slovak JR4 catheter for right coronary angiography, 5-Slovak pigtail catheter was used for left heart catheterization and left ventricular angiography. Subsequently, percutaneous intervention was carried out through the proximal right coronary, where he was found to have a 95% stenosis. It is described below. PERCUTANEOUS INTERVENTION TO THE RIGHT CORONARY ARTERY: We exchanged the sheath over a wire for a 6-Slovak sheath. We gave 6000 units of intravenous heparin and a double bolus of Integrilin was given during the procedure. We used a 6-Slovak JL4 guide catheter with side holes to engage the right coronary artery. We then advanced a BMW wire across the lesion and the tip was placed in the distal vessel. We advanced a Skypoint 2.5 x 8 mm stent to a 95% stenosis in the proximal right coronary artery, just prior to the proximal edge of the previously placed stent. This stent was carefully positioned. It slightly overlaps the old stent. The stent was deployed at 20 atmospheres, attaining a final lumen size of approximately 2.9 mm. Flow throughout the vessel is normal and there is no significant residual stenosis following stent deployment. He tolerated the procedure well. Angiography of the right femoral artery had been carried out through the sheath at the beginning of the procedure. At the end of the procedure, Mynx was used to achieve hemostasis. HEMODYNAMICS: Left ventricular end-diastolic pressure following coronary angiography was 19 mmHg. There was no significant pressure gradient on pullback across the aortic valve. LEFT VENTRICULAR ANGIOGRAPHY: Left ventricular angiography was carried out in the right anterior oblique projection. Global left ventricular systolic function is normal, no regional wall motion abnormalities are seen in this view and the ejection fraction is approximately 60%. CORONARY ANGIOGRAPHY: Left main coronary artery is free of significant disease. Left anterior descending artery has mild plaques. Left circumflex artery does not exhibit significant stenosis. There is a patent stent in the first obtuse marginal branch. This is known to be Xience Candi 2.25 x 33 mm stent and it was placed in 07/2020. There is no significant in-stent restenosis. The right coronary artery is codominant and had a 95% stenosis in its proximal portion, just proximal to the proximal edge of a previously placed stent that is known to be Integrity 2.25 x 30 mm. This lesion was stented with Skypoint 2.5 x 8 mm stent that was dilated with the stent balloon, inflated to 20 atmospheres. Subsequent angiography revealed 0% residual stenosis. CONCLUSIONS: 1. Coronary artery disease primarily consisting of a 95% proximal stenosis, just proximal to a previously placed Integrity 2.25 x 30 mm stent (treated with deployment of Skypoint 2.5 x 8 mm stent at 20 atmospheres). 2. Patent stent in the first obtuse marginal branch of the left circumflex artery, known to be Alpine Xience 2.25 x 30 mm. 3. Left ventricular end-diastolic pressure is 16 mmHg. 4. Well preserved global left ventricular systolic function with an ejection fraction of approximately 60%. DISCUSSION AND RECOMMENDATIONS: Previous regimen, including dual antiplatelet therapy is being continued. He is being hospitalized for observation after today's procedure. Job ID: [id number] DocumentID: [id number] Dictated Date: 07/25/2021 11:44:19 Management And Budget Analyst Date: 07/25/2021 12:51:55 Dictated By: EDU RODRIGUEZ MD, MA, FACP, FACC,
[2021-07-25] MEDS: NS IV 1000 ML 1,000 ML IV SCH (13:14)
[2021-07-25] MEDS: inSUlin ASPART (NovoLOG) 1 UNIT/0.01 ML (CHARGE PER UNIT) SC SCH ×2 (15:58→20:00)
[2021-07-25] MEDS: doxAzosin 1 MG (CARDURA) TAB PO SCH (20:49)
[2021-07-25] MEDS ORDERED: OMEGA 3 (FISH OIL) 1000 MG CAP PO SCH (21:00)
[2021-07-25] MEDS ORDERED: amLODIPine 10 MG (NORVASC) TAB PO SCH (21:00)
[2021-07-25] MEDS ORDERED: NON-FORMULARY MEDICATION 1 EA EA (Budesonide/Formoterol Fumarate (Symbicort 160-4.5 Mcg In IH SCH (21:00)
[2021-07-25] MEDS ORDERED: MONTELUKAST 10 MG (SINGULAIR) TAB PO SCH (21:00)
[2021-07-25] MEDS ORDERED: NON-FORMULARY MEDICATION 1 EA EA (Carvedilol 25 MG) PO SCH (21:00)
[2021-07-26] VITALS: BP 123/75
[2021-07-26 04:00] VITALS: BP 127/80
[2021-07-26] MEDS: NS IV 1000 ML 1,000 ML IV SCH (04:55)
[2021-07-26 05:17] LABS: BASOPHILS # (AUTO) 0.1 10^3/uL (0.0-0.1); BASOPHILS % (AUTO) 1 % (0-10); EOSINOPHILS # (AUTO) 0.2 10^3/uL (0.0-0.3); EOSINOPHILS % (AUTO) 2 % (0-10); HEMATOCRIT 42 % (40-54); HEMOGLOBIN 14.3 g/dL (13.3-17.7); LYMPHOCYTES % (AUTO) 25 % (12-44); MEAN CORPUSCULAR HEMOGLOBIN 31 pg (25-34); MEAN CORPUSCULAR HGB CONC 34 g/dL (32-36); MEAN CORPUSCULAR VOLUME 92 fL (80-99); MEAN PLATELET VOLUME 9.3 fL (9.0-12.2); MONOCYTES # (AUTO) 0.7 10^3/uL (0.0-1.0); MONOCYTES % (AUTO) 8 % (0-12); NEUTROPHILS # (AUTO) 5.3 10^3/uL (1.8-7.8); NEUTROPHILS % (AUTO) 64 % (42-75); PLATELET COUNT 254 10^3/uL (130-400); WHITE BLOOD COUNT 8.2 10^3/uL (4.3-11.0)
[2021-07-26 05:41] LABS: CALCIUM 9.1 MG/DL (8.5-10.1)
[2021-07-26 05:46] LABS: CREATININE SERUM 0.81 MG/DL (0.60-1.30)
[2021-07-26 05:48] LABS: MAGNESIUM 2.1 MG/DL (1.6-2.4)
[2021-07-26] MEDS ORDERED: MULTIVIT W/MINERALS TAB (THERAGRAN M) PO SCH (07:00)
[2021-07-26 07:30] VITALS: BP 136/73
--- NOTE | 2021-07-26 08:03 | Progress Note - Cardiology ---
Cardiology SOAP Progress Note Objective: I&O/Vital Signs 07/25/21 07/26/21 07/26/21 07/26/21 21:00 00:00 00:00 01:00 Temp 36.7 Pulse 65 66 Resp 18 B/P (MAP) 123/75 (91) Pulse Ox 96 96 O2 Delivery Room Air Room Air O2 Flow Rate 0.00 07/26/21 04:00 Pulse 60 Resp 18 B/P (MAP) 127/80 (96) Pulse Ox 96 O2 Delivery Room Air 07/26/21 00:00 Intake Total 720 ml Balance 720 ml Weight (Pounds): 240 Weight (Ounces): 0.0 Weight (Calculated Kilograms): 108.228751 Results/Procedures: Labs Laboratory Tests 07/25/21 08:01: White Blood Count 7.4, Red Blood Count 4.78, Hemoglobin 15.1, Hematocrit 45, Mean Corpuscular Volume 95, Mean Corpuscular Hemoglobin 32, Mean Corpuscular Hemoglobin Concent 33, Red Cell Distribution Width 13.2, Platelet Count 278, Mean Platelet Volume 9.2, Prothrombin Time 12.5, INR Comment 0.9, Activated Partial Thromboplast Time 30, Sodium Level 143, Potassium Level 3.9, Chloride Level 103, Carbon Dioxide Level 26, Anion Gap 14, Blood Urea Nitrogen 8, C reatinine 0.98, Estimat Glomerular Filtration Rate 89, BUN/Creatinine Ratio 8, Glucose Level 125H, Calcium Level 9.3, Corrected Calcium 9.1, Total Bilirubin 0.8, Aspartate Amino Transf (AST/SGOT) 22, Alanine Aminotransferase (ALT/SGPT) 59H, Alkaline Phosphatase 70, Total Protein 7.4, Albumin 4.3, Triglycerides Level 155H, Cholesterol Level 169, LDL Cholesterol Direct 112, VLDL Cholesterol 31, HDL Cholesterol 40 07/25/21 15:57: Glucometer 122H 07/26/21 04:58: White Blood Count 8.2, Red Blood Count 4.58, Hemoglobin 14.3, Hematocrit 42, Mean Corpuscular Volume 92, Mean Corpuscular Hemoglobin 31, Mean Corpuscular Hemoglobin Concent 34, Red Cell Distribution Width 13.2, Platelet Count 254, Mean Platelet Volume 9.3, Sodium Level 139, Potassium Level 4.0, Chloride Level 104, Carbon Dioxide Level 20L, Anion Gap 15H, Blood Urea Nitrogen 10, Creatinine 0.81, Estimat Glomerular Filtration Rate 102, BUN/Creatinine Ratio 12, Glucose Level 122H, Calcium Level 9.1, Immature Granulocyte % (Auto) 0, Neutrophils (%) (Auto) 64, Lymphocytes (%) (Auto) 25, Monocytes (%) (Auto) 8, Eosinophils (%) (Auto) 2, Basophils (%) (Auto) 1, Neutrophils # (Auto) 5.3, Lymphocytes # (Auto) 2.0, Monocytes # (Auto) 0.7, Eosinophils # (Auto) 0.2, Basophils # (Auto) 0.1, Immature Granulocyte # (Auto) 0.0, Magnesium Level 2.1 Microbiology 07/25/21 MRSA Screen - Final, Complete MRSA not isolated Laboratory Tests 07/25/21 08:01 07/26/21 04:58 A/P: Assessment: Coronary artery disease: - MPI or 05-31-20 shows IMI with regan-infarct ischemia, treated medically, but he continued with crescendo angina and subsequent cardiac cath below - Cardiac cath of 08-16-20: up to 99% proximal and mid vessel stenosis of the right coronary artery that was successfully stented with Integrity 2.25 x 30 mm stent, and up to 99% stenosis of the proximal portion of the first obtuse marginal branch of the left circumflex that was stented with Xience Candi 2.25 x 33 mm stent. The rest of the coronary vessels had mild plaques. Normal global left ventricular systolic function with ejection fraction approximately 60%. Left ventricular end-diastolic pressure is at the high end of normal. - MPI of 07-11-21: The study is suggestive of a small to moderate amount of basal inferior ischemia. No significant regional wall motion abnormality. Left ventricular ejection fraction is calculated to be 58%. - Cardiac cath of 07-25-21: Coronary artery disease primarily consisting of a 95% proximal stenosis,just proximal to a previously placed Integrity 2.25 x 30 mm stent (treated with deployment of Skypoint 2.5 x 8 mm stent at 20 atmospheres). Patent stent in the first obtuse marginal branch of the left circumflex artery, known to be Alpine Xience 2.25 x 30 mm. Left ventricular end- diastolic pressure is 16 mmHg. Well preserved global left ventricular systolic function with an ejection fraction of approximately 60%. Bilat leg discomfort, suggestive of claudication - PERRI of 4-6-22 shows no evidence of significant PAD Hypertension - controlled Hyperlipidemia - treated with statin, followed by pcp DM 2 - managed by PCP Carotid dz - Mild dz per u/s of 10-- Quit smoking and drinking in 2019 Abnormal ECG. - ECG of 05/19/20 shows NSR and nonspecific IVCD; old IMI cannot be excluded STEPHANIE COTTRELL Jul 26, 2021 08:03
--- NOTE | 2021-07-26 08:04 | Discharge Inst-Cardiology ---
Discharge Inst-Cardiac Discharge Medications Continued Medications: Albuterol Sulfate (Proair Hfa) 1 Puff Puff 2 PUFF IH Q4H PRN for SHORTNESS OF BREATH, EA Amlodipine Besylate (Amlodipine Besylate) 10 Mg Tablet 10 MG PO HS, TAB Aspirin (Aspirin) 81 Mg Tab.chew 81 MG PO DAILY, TAB Atorvastatin Calcium (Atorvastatin Calcium) 40 Mg Tablet 40 MG PO HS, TAB Budesonide/Formoterol Fumarate (Symbicort 160-4.5 Mcg Inhaler) 160 Mcg-4.5 Mcg/Actuation Hfa.aer.ad 1 PUFF IH BID, EA Canagliflozin (Invokana) 300 Mg Tablet 300 MG PO DAILY, TAB Carvedilol (Carvedilol) 25 Mg Tablet 25 MG PO BID, TAB Cetirizine HCl (Cetirizine HCl) 10 Mg Tablet 10 MG PO DAILY, TAB Clopidogrel Bisulfate (Clopidogrel) 75 Mg Tablet 75 MG PO DAILY, TAB Doxazosin Mesylate (Doxazosin Mesylate) 1 Mg Tablet 1 MG PO BID, TAB Metformin HCl (Metformin HCl ER) 500 Mg Tab.er.24h 500 MG PO BID, TAB Montelukast Sodium (Montelukast Sodium) 10 Mg Tablet 10 MG PO HS, TAB Multivitamin (Multivitamin) 1 Each Tablet 1 EACH PO DAILY, TAB [place] 3 Polyunsat Fatty Acids (Fish Oil 1,000 mg Capsule) 340 Mg-1,000 Mg Cap 2000 MG PO HS, CAP TAKES 2 CAPSULES Quinapril HCl (Quinapril HCl) 40 Mg Tablet 40 MG PO DAILY, TAB Semaglutide (Ozempic) 1 Mg/0.75 Ml (4 Mg/3 Ml) Pen.injctr 0.25 MG SQ WEDNESDAYS, EA Tiotropium [place] (Spiriva) 18 Mcg Aerp 1 INH IH DAILY, EA Patient Instructions Patient Instructions: DO NOT TAKE METFORMIN TODAY OR TOMORROW - RESTART ON SATURDAY, JULY 28, 2021 Please schedule follow up appointment to see Dr. Christy in 1-2 weeks STEPHANIE COTTRELL Jul 26, 2021 08:04
[2021-07-26] MEDS ORDERED: NON-FORMULARY MEDICATION 1 EA EA (Canagliflozin (Invokana) 300 MG) PO SCH (09:00)
[2021-07-26] MEDS ORDERED: NON-FORMULARY MEDICATION 1 EA EA (Quinapril HCl 40 MG) PO SCH (09:00)
[2021-07-26] MEDS ORDERED: LORATADINE (CLARITIN) 10 MG TAB PO SCH (09:00)
[2021-07-26] MEDS ORDERED: CETIRIZINE HCL (ZYRTEC) 10 MG TAB PO SCH (09:00)
[2021-07-26] MEDS ORDERED: CLOPIDOGREL 75 MG (PLAVIX) TABLET PO SCH (09:00)
[2021-07-26] MEDS ORDERED: NON-FORMULARY MEDICATION 1 EA EA (Multivitamin 1 EACH) PO SCH (09:00)
[2021-07-26] MEDS ORDERED: ASPIRIN 81 MG CHEW (CHILDREN'S ASA) PO SCH (09:00)
[2021-07-26] MEDS ORDERED: lisINopril 40 MG (PRINIVIL) TABLET PO SCH (09:00)
[2021-07-26] MEDS: doxAzosin 1 MG (CARDURA) TAB PO SCH (09:25)
--- NOTE | 2021-07-26 09:37 | Progress Note - Cardiology ---
Cardiology SOAP Progress Note Subjective: No cp or palp or syncope No groin or leg discomfort or discoloration Objective: I&O/Vital Signs 07/26/21 07/26/21 07/26/21 07/26/21 00:00 00:00 01:00 04:00 Temp 36.7 Pulse 65 66 60 Resp 18 18 B/P (MAP) 123/75 (91) 127/80 (96) Pulse Ox 96 96 O2 Delivery Room Air Room Air 07/26/21 07/26/21 07/26/21 07/26/21 07:00 07:30 08:00 08:00 Temp 36.5 Pulse 80 71 64 Resp 11 22 B/P (MAP) 136/73 (94) O2 Delivery Room Air Room Air 07/26/21 08:50 Pulse Ox 95 O2 Delivery Room Air O2 Flow Rate 0.00 07/26/21 00:00 Intake Total 720 ml Balance 720 ml Weight (Pounds): 240 Weight (Ounces): 0.0 Weight (Calculated Kilograms): 108.562626 Condition: DP/PT pulses palpable Bruising: moderated bruising Constitutional: AAO x 3, well-developed, well-nourished Respiratory: No accessory muscle use; other (good, bilat air entry) Cardiovascular: regular rate-rhythm, S1 and S2, systolic murmur (soft RAND at card base) Gastrointestional: No tender; soft; No guarding, No rebound; audible bowel sounds Extremities: No clubbing, No cyanosis, No significant edema Neurologic/Psychiatric: other (moves all limbs) Skin: No rash on exposed areas, No ulcerations on exposed areas Results/Procedures: Labs Laboratory Tests 07/25/21 15:57: Glucometer 122H 07/26/21 04:58: White Blood Count 8.2, Red Blood Count 4.58, Hemoglobin 14.3, Hematocrit 42, Mean Corpuscular Volume 92, Mean Corpuscular Hemoglobin 31, Mean Corpuscular Hemoglobin Concent 34, Red Cell Distribution Width 13.2, Platelet Count 254, Mean Platelet Volume 9.3, Immature Granulocyte % (Auto) 0, Neutrophils (%) (Auto) 64, Lymphocytes (%) (Auto) 25, Monocytes (%) (Auto) 8, Eosinophils (%) (Auto) 2, Basophils (%) (Auto) 1, Neutrophils # (Auto) 5.3, Lymphocytes # (Auto) 2.0, Monocytes # (Auto) 0.7, Eosinophils # (Auto) 0.2, Basophils # (Auto) 0.1, Immature Granulocyte # (Auto) 0.0, Sodium Level 139, Potassium Level 4.0, Chloride Level 104, Carbon Dioxide Level 20L, Anion Gap 15H, Blood Urea Nitrogen 10, Creatinine 0.81, Estimat Glomerular Filtration Rate 102, BUN/Creatinine Ratio 12, Glucose Level 122H, Calcium Level 9.1, Magnesium Level 2.1 Microbiology 07/25/21 MRSA Screen - Final, Complete MRSA not isolated Laboratory Tests 07/25/21 08:01 07/26/21 04:58 A/P: Assessment: Coronary artery disease: - MPI or 05-31-20 shows IMI with regan-infarct ischemia, treated medically, but he continued with crescendo angina and subsequent cardiac cath below - Cardiac cath of 08-16-20: up to 99% proximal and mid vessel stenosis of the right coronary artery that was successfully stented with Integrity 2.25 x 30 mm stent, and up to 99% stenosis of the proximal portion of the first obtuse marginal branch of the left circumflex that was stented with Xience Candi 2.25 x 33 mm stent. The rest of the coronary vessels had mild plaques. Normal global left ventricular systolic function with ejection fraction approximately 60%. Left ventricular end-diastolic pressure is at the high end of normal. - MPI of 07-11-21: The study is suggestive of a small to moderate amount of basal inferior ischemia. No significant regional wall motion abnormality. Left ventricular ejection fraction is calculated to be 58%. - Cardiac cath of 07-25-21: Coronary artery disease primarily consisting of a 95% proximal stenosis,just proximal to a previously placed Integrity 2.25 x 30 mm stent (treated with deployment of Skypoint 2.5 x 8 mm stent at 20 atmospheres). Patent stent in the first obtuse marginal branch of the left c ircumflex artery, known to be Alpine Xience 2.25 x 30 mm. Left ventricular end- diastolic pressure is 16 mmHg. Well preserved global left ventricular systolic function with an ejection fraction of approximately 60%. Bilat leg discomfort, suggestive of claudication - PERRI of 07-05-21 shows no evidence of significant PAD Hypertension - controlled Hyperlipidemia - treated with statin, followed by pcp DM 2 - managed by PCP Carotid dz - Mild dz per u/s of 10-- Quit smoking and drinking in 2019 Abnormal ECG. - ECG of 05/19/20 shows NSR and nonspecific IVCD; old IMI cannot be excluded Plan: I explained his cath findings and interventions undertaken to him and answered questions Outpt f/u advised EDU RODRIGUEZ MD FACP FAC CCDS Jul 26, 2021 09:37
[2021-07-26] MEDS: inSUlin ASPART (NovoLOG) 1 UNIT/0.01 ML (CHARGE PER UNIT) SC SCH ×2 (09:57→09:58)
[2021-07-26 11:31] VITALS: BP 130/77
== END 2021-07-26 11:33 ==
LOC: CATH 10:00 → CSD 12:16 → CATH 07-26 11:33
PROVIDERS: ATTEND Internal Medicine Cardiovascular Disease
DX: I25.118 Atherosclerotic heart disease of native coronary artery with other forms of angina pectoris (principal); I10 Essential (primary) hypertension; I77.9 Disorder of arteries and arterioles, unspecified; G89.29 Other chronic pain; M54.9 Dorsalgia, unspecified; R60.0 Localized edema; E78.5 Hyperlipidemia, unspecified; R94.31 Abnormal electrocardiogram [ECG] [EKG]; E11.8 Type 2 diabetes mellitus with unspecified complications; Z79.899 Other long term (current) drug therapy; Z87.891 Personal history of nicotine dependence; Z79.02 Long term (current) use of antithrombotics/antiplatelets; Z95.5 Presence of coronary angioplasty implant and graft; Z79.84 Long term (current) use of oral hypoglycemic drugs
CPT/HCPCS: 80048; 80053; 80061; 82947; 83735; 85025; 85027; 85610; 85730; 87081; 93005 ×2; 93458; C1760; C1769; C1874; C1887; C1894 ×2; C9600; 36415